=== PATIENT | female | born 1940 | race Caucasian/White ===

== ENCOUNTER → 2017-07-22 | Outpatient (CLI) | payer MEDICARE, BC ==
[~2017-07-22] MED LIST: ACET500T68 PO; ALBU8.5H IH; AMIL5TAB12 PO; ASP81 PO; ASPI-1471 PO; ASPI81TA94 PO; ATEN-65 PO; ATEN-76 PO; BIOF1TAB PO; CALC300T30 PEG; CALC400T65 PO; CELE-1 PO; CEPH250C37 PO; CHOL100052 PO; CHOL200074 PO; CRAN200C5 PO; CRAN425C8 PO; CYCL10TA29 PO; ENOX40DI9 SC; FLUT10SP; FLUT16SP19 NS; HYDR-3078 PO; LATA2.5D7 OU; LEVO150T72 PO; LEVO50TA86 PO; LOPE-111 PO; LOR5/325 PO; LOSA25TA46 PO; LOSA50TA72 PO; LUTE20TA PO; MELA10TA2 PO; MELA1TAB9 PO; MELO-205 PO; MOD FT; MOD PO; MONT10TA4 PO; MULT-865 PO; OMEG-96 PO; OMEP-125 PO; OMEP-153 PO; ONDA8TAB98 PO; OXYC5TAB38 PO; PAIN RELIEF TOP; PER PO; PROM25SU9 RC; RANI150C17 PO; [UNRECOGNIZED DRUG - OTHER] ENA
[2017-07-22 14:52] LABS: PLATELET COUNT, AUTOMATED 193 K/uL (150-450)
--- NOTE | 2017-07-22 15:34 | RADIOLOGY IMAGING REPORT ---
FACILITY: [facility] - [place] PATIENT NAME: Telma Joseph : 1940 MR: [id number] V: [id number] EXAM DATE: ORDERING PHYSICIAN: JOANNA PULIDO TECHNOLOGIST: Location: [facility] Patient: Telma Joseph : 1940 Visit/Account:[id number] Date of Sevice: 07/22/2017 Exam type: KUB SINGLE VIEW ABDOMEN History: Constipation, abdominal pain Comparison: CT February 25, 2014. Findings: Bowel gas pattern is nonspecific. Surgical clips identified in the right upper quad abdomen. There are postsurgical changes from posterior lumbar interbody fusion of the lower lumbosacral spine. No g ross evidence of organomegaly. There are moderate degenerative changes of both hip joints at the pub ic symphysis. IMPRESSION: 1. Nonspecific bowel gas pattern Report Dictated By: Paula De León MD at 07/22/2017 3:29 PM Report E-Signed By: Paula De León MD at 07/22/2017 3:31 PM WSN:[email or web address]
== END ==
LOC: LAB 14:12
PROVIDERS: ATTEND Nurse Practitioner Primary Care
DX: M96.89 Other intraoperative and postprocedural complications and disorders of the musculoskeletal system (principal); R10.9 Unspecified abdominal pain
CPT/HCPCS: 36415; 74018; 82040; 82247; 82310; 82374; 82435; 82565; 82947; 84075; 84132; 84155; 84295; 84450; 84460; 84520; 85025

== ENCOUNTER 2017-08-08 01:28 | Day surgery (SDC) | payer MEDICARE, BC ==
[2017-08-08] VITALS (7 sets, daily range): BP systolic 125–145; BP diastolic 87–109
[~2017-08-08] VITALS: Ht 175.3 cm; Wt 66.2 kg
[~2017-08-08 01:28] MED LIST changes: +GUAI120L3 PO
[2017-08-08] MEDS ORDERED: MIDAZOLAM 2 MG/2 ML VIAL IVP PRN (07:55)
[2017-08-08] MEDS ORDERED: NORMOSOL R SOLN(*) 1000 ML BAG 1,000 ML IV PRN (07:55)
[2017-08-08] MEDS ORDERED: LIDOCAINE/SOD BICARB 8.4% SYR ID ONE (07:55)
--- NOTE | 2017-08-08 08:06 | Post Operative Progress Note ---
Post Operative Progress Note Date: Aug 08, 2017 Time: 09:01 Surgeon: kendal Anesthesia: dr weaver Pre-Op Diagnosis: change in bowel habits Post-Op Diagnosis: diverticulosis sigmoid Procedure(s): colonoscopy WILIAM VILLAR MD Aug 08, 2017 08:06
--- NOTE | 2017-08-08 08:06 | Short(Outpt) Discharge Summary ---
Discharge Summary Reason for Hosp/Final Diag: (1) Change in bowel habits Hospital Course & Plan: sigmoid diverticulosis Departure Discharge to: Home Discharge Instructions Home Meds Active Scripts Guaifenesin/Codeine Phosphate (Codeine-Guaifen 10-100 mg/5 ml) 120 Ml Liquid, 1- 2 TSP PO Q6H Y for COUGH, #120 ML 0 Refills Prov:JOANNA PULIDO DNP, FEATHER DUSTER WINDER-BC 08/06/17 Levothyroxine Sodium (LEVOTHYROXINE SODIUM) 50 Mcg Tablet, 1 TAB PO QDAY, #90 TAB 1 Refill Prov:DENISA SU MD 08/05/17 Losartan Potassium (LOSARTAN POTASSIUM) 50 Mg Tablet, 1 TAB PO QDAY, #90 TAB 4 Refills Prov:DENISA SU MD 07/31/17 Ranitidine Hcl (RANITIDINE HCL) 150 Mg Capsule, 1 CAP PO BID for 90 Days, #180 CAPSULE 3 Refills Prov:DENISA SU MD 06/28/17 Amiloride/Hctz (AMILORIDE HCL-HCTZ 5-50 MG TAB) 1 Each Tab, 1 EACH PO 3XW, #36 TAB 3 Refills Prov:RIKA CHOPRA MD 07/27/14 Reported Medications Atenolol (ATENOLOL) 25 Mg Tablet, 1 TAB PO BID, TAB 06/28/17 Albuterol Sulfate 90 Mcg/Act (PROAIR HFA 90 MCG/ACT) 8.5 Gm Hfa.aer.ad, 2 PUFF IH Q4-6H Y for SHORTNESS OF BREATH, INHALER 06/28/17 Melatonin/Pyridoxine HCl (B6) (Melatonin 3 mg Tablet) 1 Each Tablet, 6 MG PO HS 06/28/17 Calcium Carbonate (TUMS ULTRA) 400 Mg Tab.chew, 2-3 TAB.CHEW PO DAILY, TAB.CHEW 06/28/17 Aspirin (ASPIR 81) 81 Mg Tablet.dr, 1 TAB PO QDAY, TAB 06/28/17 Fluticasone Prop 50 Mcg Ns (FLONASE 50 MCG NS) 16 Gm [place].susp, 1 SPRAY NS BID Y for PRN, BOT 06/28/17 [place]-3 Fatty Acids/Fish Oil (OMEGA 3 1,000 MG SOFTGEL) 1 Each Capsule, 1 EACH PO BID 08/07/15 Montelukast Sodium (MONTELUKAST SODIUM) 10 Mg Tablet, 1 TAB PO QDAY, TAB 08/07/15 Lutein (LUTEIN) 20 Mg Tablet, 1 TAB PO DAILY 08/07/15 Cholecalciferol (Vitamin D3) (VITAMIN D-3) 2,000 Unit Capsule, 1 CAP PO DAILY, CAPSULE 08/07/15 Acetaminophen (TYLENOL EXTRA STRENGTH) 500 Mg Tablet, 2 TAB PO PRN 08/07/15 Latanoprost (LATANOPROST) 2.5 Ml Drops, 1 DROP OU QHS 03/25/14 Meloxicam (MELOXICAM) 7.5 Mg Tablet, 1 TAB PO DAILY 03/25/14 Discontinued Reported Medications Cranberry Extract (CRANBERRY) 425 Mg Capsule, 450 MG PO DAILY, CAPSULE 06/28/17 Bioflav,Lemon/Vit Bcomp&C (LIPO-FLAVONOID PLUS CAPLET) 1 Each Tablet, 1 EACH PO 06/28/17 Multivitamin (DAILY MULTIPLE VITAMIN) 1 Each Tablet, 1 EACH PO DAILY 08/07/15 Diet: High Fiber Activity: As Tolerated WILIAM VILLAR MD Aug 08, 2017 08:06
[2017-08-08] MEDS ORDERED: PROPOFOL EMUL(*) 10MG/ML 20 ML 40 ML ONE (08:18)
[2017-08-08] MEDS ORDERED: LIDOCAINE MPF 1% 5 ML VIAL ONE (08:18)
[2017-08-08] MEDS ORDERED: ALBUTEROL/IPRATROPIUM 3 ML NEB ONE (09:26)
--- NOTE | 2017-08-08 15:46 | OPERATIVE REPORT 1 ---
EVENT DATE: August 08, 2017 SURGEON: Rodrigo Powell MD ANESTHESIOLOGIST: Scar Dowell MD ANESTHESIA: Sedation. PREOPERATIVE DIAGNOSIS Change in bowel habits, change in the shape of the stool. POSTOPERATIVE DIAGNOSIS Sigmoid diverticulosis. PROCEDURE PERFORMED Colonoscopy. DESCRIPTION OF PROCEDURE The patient was placed in the left lateral decubitus position and given intravenous sedation. The rectal exam showed some external hemorrhoidal skin tags. On digital exam, I could not palpate any masses, no strictures, no narrowings, and no tumors. The colonoscope was inserted and advanced to the cecum. She had quite a tortuous sigmoid colon with lots of diverticula, but we were able to advance beyond this and get the scope into the cecum. She had an excellent bowel prep. The ileocecal valve and base of the cecum were identified. Care was taken to look behind the haustral folds, and the scope was slowly withdrawn. No abnormalities were noted in the cecum, right colon, transverse, or descending colon. She had multiple diverticula and a tortuous sigmoid colon, but it seemed to distend nicely and allow my scope to pass. Rectum was normal. The scope was retroflexed, and that appeared to be normal. Most likely, this patient will not require another colonoscopy. [facility]
== END 2017-08-08 10:15 | disposition home or self-care (01) ==
LOC: OR 01:28
PROVIDERS: ATTEND Surgery
DX: R19.4 Change in bowel habit (principal); R19.5 Other fecal abnormalities; K57.30 Diverticulosis of large intestine without perforation or abscess without bleeding
CPT/HCPCS: 00811; 45378; 94640; J2001; J2704; J7620

== ENCOUNTER 2017-08-10 09:59 | Emergency (ER) | payer MEDICARE, BC ==
--- NOTE | 2017-08-10 10:33 | ER Report ---
History and Physical Time Seen By MD: 10:32 Hx. of Stated Complaint: patient states that she has been sick with a bad cough for 2 weeks; patient states that she thinks that she has the flu; patient also had an colonoscopy 08/08/17 at [facility] HPI/ROS CHIEF COMPLAINT: Persistent cough and flulike symptoms HISTORY OF PRESENT ILLNESS: Patient is a 76 her old female who presents emergency Department with worsening cough over the past 2 weeks. Reports fevers chills body aches and mild headache. The symptoms have been present for 2 weeks patient was seen at urgent care and was prescribed Zithromax course which she completed. The patient felt no better after completion of the antibiotic. Because of persistent cough she presents to the emergency department for evaluation. REVIEW OF SYSTEMS: Constitutional: Subjective fevers generalized malaise, body aches Eyes: No discharge. ENT: Mild sore throat, postnasal drip Cardiovascular: Subcostal chest discomfort with cough, no palpitations Respiratory: Wet sounding but nonproductive cough, Gastrointestinal: No abdominal pain, no vomiting. Genitourinary: No hematuria. Musculoskeletal: No back pain. Skin: No rashes. Neurological: No headache. Allergies: Coded Allergies: lisinopril (Verified Allergy, Severe, LIPS SWELL, 08/10/17) nitrofurantoin (Verified Allergy, Severe, Shortness of Breath, 08/10/17) ROE Inhibitors (Verified Allergy, Intermediate, SWELLING, 08/10/17) Pt does not think she is allergic to these medications pentazocine (Verified Allergy, Intermediate, N/V, 08/10/17) oxycodone (Verified Adverse Reaction, Severe, NAUSEA AND VOMITING, 08/10/17 ) Home Meds Active Scripts Albuterol Sulfate 0.083% (ALBUTEROL SULFATE 0.083%) 2.5 Mg/3 Ml Vial.neb, 2.5 MG INH Q4-6H for cough, #1 BOX 0 Refills Prov:ARMAAN GUNTER MD 08/10/17 Prednisone (PREDNISONE) 20 Mg Tablet, 20 MG PO BID for 5 Days, #10 TAB 0 Refills Prov:ARMAAN GUNTER MD 08/10/17 Codeine Phosphate/Guaifenesin (Virtussin AC Liquid) 10 Mg-100 Mg/5 Ml Liquid, 5- 10 ML PO Q6-8H for cough, #240 ML 0 Refills Prov:ARMAAN GUNTER MD 08/10/17 Guaifenesin/Codeine Phosphate (Codeine-Guaifen 10-100 mg/5 ml) 120 Ml Liquid, 1- 2 TSP PO Q6H Y for COUGH, #120 ML 0 Refills Prov:JOANNA PULIDO DNP, [employer] I INSPECTOR-BC 08/06/17 Levothyroxine Sodium (LEVOTHYROXINE SODIUM) 50 Mcg Tablet, 1 TAB PO QDAY, #90 TAB 1 Refill Prov:DENISA SU MD 08/05/17 Losartan Potassium (LOSARTAN POTASSIUM) 50 Mg Tablet, 1 TAB PO QDAY, #90 TAB 4 Refills Prov:DENISA SU MD 07/31/17 Ranitidine Hcl (RANITIDINE HCL) 150 Mg Capsule, 1 CAP PO BID for 90 Days, #180 CAPSULE 3 Refills Prov:DENISA SU MD 06/28/17 Amiloride/Hctz (AMILORIDE HCL-HCTZ 5-50 MG TAB) 1 Each Tab, 1 EACH PO 3XW, #36 TAB 3 Refills Prov:RIKA CHOPRA MD 07/27/14 Reported Medications Atenolol (ATENOLOL) 25 Mg Tablet, 1 TAB PO BID, TAB 06/28/17 Albuterol Sulfate 90 Mcg/Act (PROAIR HFA 90 MCG/ACT) 8.5 Gm Hfa.aer.ad, 2 PUFF IH Q4-6H Y for SHORTNESS OF BREATH, INHALER 06/28/17 Melatonin/Pyridoxine HCl (B6) (Melatonin 3 mg Tablet) 1 Each Tablet, 6 MG PO HS 06/28/17 Calcium Carbonate (TUMS ULTRA) 400 Mg Tab.chew, 2-3 TAB.CHEW PO DAILY, TAB.CHEW 06/28/17 Aspirin (ASPIR 81) 81 Mg Tablet.dr, 1 TAB PO QDAY, TAB 06/28/17 Fluticasone Prop 50 Mcg Ns (FLONASE 50 MCG NS) 16 Gm [place].susp, 1 SPRAY NS BID Y for PRN, BOT 06/28/17 [place]-3 Fatty Acids/Fish Oil (OMEGA 3 1,000 MG SOFTGEL) 1 Each Capsule, 1 EACH PO BID 08/07/15 Montelukast Sodium (MONTELUKAST SODIUM) 10 Mg Tablet, 1 TAB PO QDAY, TAB 08/07/15 Lutein (LUTEIN) 20 Mg Tablet, 1 TAB PO DAILY 08/07/15 Cholecalciferol (Vitamin D3) (VITAMIN D-3) 2,000 Unit Capsule, 1 CAP PO DAILY, CAPSULE 08/07/15 Acetaminophen (TYLENOL EXTRA STRENGTH) 500 Mg Tablet, 2 TAB PO PRN 08/07/15 Latanoprost (LATANOPROST) 2.5 Ml Drops, 1 DROP OU QHS 03/25/14 Meloxicam (MELOXICAM) 7.5 Mg Tablet, 1 TAB PO DAILY 03/25/14 Discontinued Reported Medications Cranberry Extract (CRANBERRY) 425 Mg Capsule, 450 MG PO DAILY, CAPSULE 06/28/17 Bioflav,Lemon/Vit Bcomp&C (LIPO-FLAVONOID PLUS CAPLET) 1 Each Tablet, 1 EACH PO 06/28/17 Multivitamin (DAILY MULTIPLE VITAMIN) 1 Each Tablet, 1 EACH PO DAILY 08/07/15 Past Medical/Surgical History Past medical history for allergic rhinitis, history of moderate mitral regurgitation and tricuspid regurgitation, history of hypertension, history of asthma, history of pulmonary embolism after neck surgery in 2005, history of sleep apnea, history of gastroesophageal reflux disease history of pancreatitis. History of osteoarthritis, history of hypothyroidism, spinal surgery with lumbar laminectomy in 2001 and cervical laminectomy in 2005. History of cholecystectomy in 1982 and history of hernia repair. Hx Smoking: No Smoking Status: Never Smoker Exposure to Second Hand Smoke?: No Hx Substance Use Disorder: No Hx Alcohol Use: Yes (OCC) Constitutional Vital Sign - Last 24 Hours 08/10/17 08/10/17 08/10/17 08/10/17 09:59 10:19 10:20 10:29 Temp 97.4 Pulse ??? 81 ??? Resp 19 B/P (MAP) 163/116 163/116 (132) Pulse Ox 90 O2 Delivery Room Air 08/10/17 08/10/17 08/10/17 08/10/17 10:30 10:35 10:50 10:50 Pulse 79 Resp 18 B/P (MAP) 149/101 (117) Pulse Ox 94 O2 Delivery Nasal Cannula O2 Flow Rate 1.0 1.0 08/10/17 08/10/17 08/10/17 08/10/17 10:59 10:59 11:30 11:59 Pulse 77 84 79 Resp 18 B/P (MAP) 168/102 (124) Pulse Ox 98 92 08/10/17 08/10/17 08/10/17 08/10/17 11:59 12:00 12:05 12:20 Pulse 80 80 77 Resp 16 B/P (MAP) 165/111 (129) Pulse Ox 91 93 08/10/17 08/10/17 08/10/17 08/10/17 12:20 12:28 12:28 12:30 Pulse 76 Resp 16 B/P (MAP) 152/96 (114) Pulse Ox 96 95 O2 Delivery Nasal Cannula Room Air O2 Flow Rate 1.0 08/10/17 08/10/17 08/10/17 08/10/17 12:35 12:43 12:43 12:49 Pulse 79 76 77 Resp 18 18 Pulse Ox 91 95 O2 Delivery Nasal Cannula O2 Flow Rate 1.0 08/10/17 08/10/17 13:00 13:05 Pulse 82 B/P (MAP) 155/97 (116) Pulse Ox 88 Physical Exam General/Constitutional: Patient is awake, alert, nontoxic wet sounding cough, increased work of breathing Head: Normocephalic and atraumatic. Eyes: Conjunctival clear, Pupils are equal and reactive to light. Extraocular muscles are intact and symmetrical. Sclera are clear and anicteric. Ears:External canals are clear. Tympanic membranes are clear with normal landmarks and light reflex. Nares: No rhinorrhea or bleeding. Turbinates are pink and moist. Oropharyngeal: Mucous membranes are moist. There is no pharyngeal erythema or exudate. There are no palatal petechiae. Uvula symmetrical Neck: Supple, no adenopathy. Cardiovascular: Heart is regular rate and rhythm without audible murmurs, rubs or gallops. Pulmonary: Lungs are noted for wet rhonchi and wheeze with prolonged expiratory phase. Abdomen: Soft, nontender, no guarding or peritoneal signs. Extremities: No gross deformities, No peripheral cyanosis. Able to move all 4 extremities. Neuro: Alert and oriented X3, Skin: No rashes, skin is warm dry and well perfused. Medical Decision Making Data Points Result Diagram: 08/10/17 1029 08/10/17 1029 Laboratory Hematology Test 08/10/17 10:15 08/10/17 10:29 Influenza Virus Type A (PCR) Negative (NEGATIVE) Influenza Virus Type B (PCR) Negative (NEGATIVE) Respiratory Syncytial Virus (PCR) Positive (NEGATIVE) Red Blood Count 4.97 M/uL (4.17-5.56) Mean Corpuscular Volume 89.3 fL (80.0-96.0) Mean Corpuscular Hemoglobin 30.5 pg (26.0-33.0) Mean Corpuscular Hemoglobin Concent 34.1 g/dL (32.0-36.0) Red Cell Distribution Width 14.3 % (11.5-14.5) Mean Platelet Volume 7.3 fL (7.2-11.1) Neutrophils (%) (Auto) 75.3 % (39.4-72.5) Lymphocytes (%) (Auto) 13.6 % (17.6-49.6) Monocytes (%) (Auto) 10.6 % (4.1-12.4) Eosinophils (%) (Auto) 0.0 % (0.4-6.7) Basophils (%) (Auto) 0.5 % (0.3-1.4) Nucleated RBC Relative Count (auto) 0.0 /100WBC Neutrophils # (Auto) 3.5 K/uL (2.0-7.4) Lymphocytes # (Auto) 0.6 K/uL (1.3-3.6) Monocytes # (Auto) 0.5 K/uL (0.3-1.0) Eosinophils # (Auto) 0.0 K/uL (0.0-0.5) Basophils # (Auto) 0.0 K/uL (0.0-0.1) Nucleated RBC Absolute Count (auto) 0.00 K/uL Sodium Level 129 mmol/L (137-145) Potassium Level 3.9 mmol/L (3.5-5.0) Chloride Level 91 mmol/L (98-107) Carbon Dioxide Level 24 mmol/L (22-31) Blood Urea Nitrogen 14 mg/dl (7-18) Creatinine 0.90 mg/dl (0.52-1.04) Glomerular Filtration Rate Calc > 60.0 Random Glucose 92 mg/dl (75-110) Calcium Level 9.1 mg/dl (8.4-10.2) Total Bilirubin 0.8 mg/dl (0.2-1.3) Aspartate Amino Transf (AST/SGOT) 36 U/L (0-35) Alanine Aminotransferase (ALT/SGPT) 42 U/L (0-56) Alkaline Phosphatase 75 U/L (0-126) Total Protein 7.3 gm/dl (6.3-8.2) Albumin 4.3 g/dl (3.5-5.0) Chemistry Test 08/10/17 10:15 08/10/17 10:29 Influenza Virus Type A (PCR) Negative (NEGATIVE) Influenza Virus Type B (PCR) Negative (NEGATIVE) Respiratory Syncytial Virus (PCR) Positive (NEGATIVE) White Blood Count 4.7 k/uL (4.5-11.0) Red Blood Count 4.97 M/uL (4.17-5.56) Hemoglobin 15.1 g/dL (12.0-16.0) Hematocrit 44.4 % (34.0-47.0) Mean Corpuscular Volume 89.3 fL (80.0-96.0) Mean Corpuscular Hemoglobin 30.5 pg (26.0-33.0) Mean Corpuscular Hemoglobin Concent 34.1 g/dL (32.0-36.0) Red Cell Distribution Width 14.3 % (11.5-14.5) Platelet Count 132 K/uL (150-450) Mean Platelet Volume 7.3 fL (7.2-11.1) Neutrophils (%) (Auto) 75.3 % (39.4-72.5) Lymphocytes (%) (Auto) 13.6 % (17.6-49.6) Monocytes (%) (Auto) 10.6 % (4.1-12.4) Eosinophils (%) (Auto) 0.0 % (0.4-6.7) Basophils (%) (Auto) 0.5 % (0.3-1.4) Nucleated RBC Relative Count (auto) 0.0 /100WBC Neutrophils # (Auto) 3.5 K/uL (2.0-7.4) Lymphocytes # (Auto) 0.6 K/uL (1.3-3.6) Monocytes # (Auto) 0.5 K/uL (0.3-1.0) Eosinophils # (Auto) 0.0 K/uL (0.0-0.5) Basophils # (Auto) 0.0 K/uL (0.0-0.1) Nucleated RBC Absolute Count (auto) 0.00 K/uL Glomerular Filtration Rate Calc > 60.0 Calcium Level 9.1 mg/dl (8.4-10.2) Total Bilirubin 0.8 mg/dl (0.2-1.3) Aspartate Amino Transf (AST/SGOT) 36 U/L (0-35) Alanine Aminotransferase (ALT/SGPT) 42 U/L (0-56) Alkaline Phosphatase 75 U/L (0-126) Total Protein 7.3 gm/dl (6.3-8.2) Albumin 4.3 g/dl (3.5-5.0) EKG/Imaging EKG Interpretation EKG shows normal sinus rhythm with voltage criteria for left ventricular hypertrophy. Monitor Interpretation: Normal Sinus Rhythm ED Course/Re-evaluation ED Course 08/10/2017 10:53:33 am patient with symptoms of acute bronchitis. Plan will be infectious-type workup. Doubt cardiac cause for her symptoms, we'll also check for influenza and RSV. Plan will be DuoNeb and IV steroids at this time. Re-evaluation 08/10/2017 12:40:11 pm patient feeling somewhat improved after 2 DuoNeb treatments. We'll order one more. Chest x-ray is clear testing reveals positive RSV. Plan will be to discharge patient with a home nebulizer along with medications do a short course of oral steroids. He'll the patient's cough medicine Decision to Disposition Date: Aug 10, 2017 Decision to Disposition Time: 13:12 Depart Departure Latest Vital Signs Vital Signs Date Time Temp Pulse Resp B/P (MAP) Pulse Ox O2 Delivery O2 Flow Rate FiO2 08/10/17 13:05 82 88 08/10/17 13:00 155/97 (116) 08/10/17 12:49 18 08/10/17 12:43 Nasal Cannula 1.0 08/10/17 10:19 97.4 Impression: Primary Impression: RSV bronchitis Condition: Improved Disposition: HOME OR SELF-CARE Referrals: DENISA SU MD (PCP) 2 Days For recheck New Scripts Albuterol Sulfate 0.083% (ALBUTEROL SULFATE 0.083%) 2.5 Mg/3 Ml Vial.neb 2.5 MG INH Q4-6H for cough, #1 BOX 0 Refills Prov: ARMAAN GUNTER MD 08/10/17 Prednisone (PREDNISONE) 20 Mg Tablet 20 MG PO BID for 5 Days, #10 TAB 0 Refills Prov: ARMAAN GUNTER MD 08/10/17 Codeine Phosphate/Guaifenesin (Virtussin AC Liquid) 10 Mg-100 Mg/5 Ml Liquid 5-10 ML PO Q6-8H for cough, #240 ML 0 Refills Prov: ARMAAN GUNTER MD 08/10/17 Departure Forms: ER Transition Record, Home Oxygen, Nebulizer RX, Home Oxygen Company Chosen by Patient: Durable Medical Equipment-Oxygen: Nebulizer Reason for Use/Diagnosis: rsv bronchiolitis Start Date of the Order: Aug 10, 2017 Route of Administration (if applicable): Other Duration Home O2 Required: 14 Duration Units: Days Room Air Oxygen Saturation: 88 ER Prescribing Physician's Name: Armaan Gunter NPI Numbers for Local ER MDs: Lyric [id number] Medications Reconciliation, Patient Portal Information Patient Instructions: Acute Cough (ED), Respiratory Syncytial Virus (ED) ARMAAN GUNTER MD Aug 10, 2017 10:33
[2017-08-10] MEDS ORDERED: ALBUTEROL/IPRATROPIUM 3 ML NEB NEB ONE ×2 (10:50→12:10)
[2017-08-10] MEDS ORDERED: methylPREDNIS SUCC 125 MG/2ML IVP ONE (10:50)
[2017-08-10 10:55] LABS: PLATELET COUNT, AUTOMATED 132 K/uL (150-450)
--- NOTE | 2017-08-10 11:01 | EKG ---
FACILITY: [facility] [place] PATIENT NAME: LETICIA MCLAUGHLIN : [id number] MR: [id number] V: [id number] EXAM DATE: ORDERING PHYSICIAN: ARMAAN RILEY TECHNOLOGIST: LEXY Mckeon Reason : SOB Blood Pressure : / mmHG Vent. Rate : 075 BPM Atrial Rate : 075 BPM P-R Int : 142 ms QRS Dur : 086 ms QT Int : 412 ms P-R-T Axes : -22 038 080 degrees QTc Int : 460 ms Probable ectopic atrial rhythm Poor R wave progression, anterior leads. When compared with ECG of 16-NOV-2015 18:02, Previous ECG has undetermined rhythm, needs review Questionable change in initial forces of Septal leads Confirmed by GLENNA VAZQUEZ ([id number]) on 08/10/2017 3:26:51 PM Referred By: ROSEMARY Confirmed By:GLENNA VAZQUEZ
[2017-08-10] MEDS ORDERED: ONDANSETRON 4 MG/2 ML VIAL IVP ONE (11:50)
--- NOTE | 2017-08-10 12:33 | RADIOLOGY IMAGING REPORT ---
FACILITY: [facility] PATIENT NAME: Telma Joseph : 1940 MR: [id number] V: [id number] EXAM DATE: ORDERING PHYSICIAN: ARMAAN RILEY TECHNOLOGIST: Location: [facility] - [place] Patient: Telma Joseph : 1940 Visit/Account:[id number] Date of Sevice: 08/10/2017 Examination: CHEST PA AND LAT Comparison: None. History: Respiratory distress. Findings: Pulmonary hyperexpansion. No consolidation, nodule, or peribronchial inflammation. No pneum othorax, edema, or effusion. Cardiac and hilar contour size is within normal limits. Incompletely vis ualized cervical and lumbar spine fusions. No acute osseous abnormality. IMPRESSION: Pulmonary hyperexpansion. Otherwise, no evidence of acute cardiopulmonary disease. Report Dictated By: Petr Farrell MD at 08/10/2017 12:27 PM Report E-Signed By: Petr Farrell MD at 08/10/2017 12:30 PM WSN:[id number]
[2017-08-10] MEDS ORDERED: ALBUTEROL 2.5 MG/3 ML NEB NEB ONE (12:40)
[2017-08-10] MEDS ORDERED: PRED20TA6 PO (12:43)
[2017-08-10] MEDS ORDERED: [UNRECOGNIZED DRUG - CODE] PO (12:43)
[2017-08-10] MEDS ORDERED: ALBU2.5V36 INH (12:43)
[2017-08-10 13:00] VITALS: BP 155/97
== END 2017-08-10 13:21 | disposition home or self-care (01) ==
LOC: ER 10:26
DX: J20.5 Acute bronchitis due to respiratory syncytial virus (principal)
CPT/HCPCS: 36415; 71046; 85025; 87040; 87502; 87798; 93005; 94640; 96374; 96375; 99284; J2405; J2930; J7613; J7620; 82040; 82247; 82310; 82374; 82435; 82565; 82947; 84075; 84132; 84155; 84295; 84450; 84460; 84520

== ENCOUNTER → 2017-08-24 | Outpatient (CLI) | payer MEDICARE, BC ==
[~2017-08-24] MED LIST changes: +ALBU2.5V36 INH; +AMOX-559 PO; +PRED20TA6 PO; +[UNRECOGNIZED DRUG - CODE] PO
== END ==
LOC: LAB 07:23
PROVIDERS: ATTEND Nurse Practitioner Primary Care
DX: R19.7 Diarrhea, unspecified (principal)
CPT/HCPCS: 82274; 83630; 87045; 87324; 87449

== ENCOUNTER → 2017-08-28 | Outpatient (CLI) | payer MEDICARE, BC | LOC: LAB 13:48 | PROVIDERS: ATTEND Family Medicine | DX: E87.1 Hypo-osmolality and hyponatremia (principal) | CPT/HCPCS: 36415; 82310; 82374; 82435; 82565; 82947; 84132; 84295; 84520 ==

== ENCOUNTER → 2017-12-10 | Outpatient (CLI) | payer MEDICARE, BC ==
[~2017-12-10] MED LIST changes: +CYAN100015 PO; +RANI-318 PO; +VIT1CAPS9 PO
--- NOTE | 2017-12-10 15:47 | RADIOLOGY IMAGING REPORT ---
FACILITY: [facility] - [place] PATIENT NAME: Telma Joseph : 1940 MR: [id number] V: [id number] EXAM DATE: ORDERING PHYSICIAN: DENISA SU TECHNOLOGIST: Location: [facility] - [place] Patient: Telma Joseph : 1940 Visit/Account:[id number] Date of Sevice: 12/10/2017 DEXA Scan Clinical history: Postmenopausal. Comparison: DEXA scan from 04/15/2012. HIP: Bone mineral density (BMD) measured in the Left total hip region correlates with a Z-score 0.4 and a T-score of -1.3 which is osteopenia as defined by the World Health Organization. The corresponding r isk of fracture in the hip is 2-3 times increased compared with a young adult reference population. T his total hip value has decrease by 3.1 % since the prior study. More than 5% change is considered s ignificant. T score left femoral neck -1.7 Bone mineral density (BMD) measured in the Femoral Neck region measures 0.799 g/cm2. FOREARM: The bone mineral density (BMD) measured in the ULTRADISTAL right forearm, where trabecular bone predo minates, correlates with a Z-score 1.7 and a T-score of -0.7 which is normal as defined by the World Health Organization. The corresponding risk of fracture in the distal forearm is 1-2 times increased compared with a young adult reference population. This value has decrease by 11.4 % since the prior study. More than 5% change is considered significant. The bone mineral density (BMD) in the MIDSHAFT of the forearm, where cortical bone predominates, chato elates with a Z-score 0.1 and a T-score of -2.3 which is osteopenia as defined by the World Health Or ganization. The corresponding risk of fracture in the midshaft of the forearm is 4-6 times increased compared with a young adult reference population. This value has decrease by 11.4 % since the prior s tudy. More than 5% change is considered significant. IMPRESSION: 1. Left Hip: Osteopenia. There has been 3.1% decrease in the total hip bone mineral density since t he previous exam. 2. Femoral Neck: Bone Mineral Density is 0.799 g/cm2 3. Right Forearm: Osteopenia. There has been 11.4% decrease in the bone mineral density since the previous exam The next DEXA scan of this patient should include the following sites: L1-L4 and the right forearm. FRAX? WHO Fracture Risk Assessment Tool link: <http://www.shef.ac.uk/FRAX/tool.jsp?locationValue=9> PLEASE NOTE: 1) The World Health Organization defines low BMD as follows: T-score Normal > -1 Osteopenia < -1 and > -2.5 Osteoporosis < -2.5 without fractures Established osteoporosis < -2.5 with fractures 2) In general, you may wish to consider: Diagnosis Treatment Follow-up DEXA Normal BMD Prevention 2-3 years Osteopenia Prevention/therapy 1-2 years Osteoporosis Therapy Yearly 3) Fracture risk estimated from the T-score is more accurate for vertebral fractures (often spontane ous) than for hip fractures. Report Dictated By: Paula De León MD at 12/10/2017 3:39 PM Report E-Signed By: Paula De León MD at 12/10/2017 3:42 PM WSN:[email or web address]
== END ==
LOC: RAD 01:30
PROVIDERS: ATTEND Family Medicine
DX: M85.88 Other specified disorders of bone density and structure, other site (principal)
CPT/HCPCS: 77080

== ENCOUNTER 2018-03-19 21:26 | Emergency (ER) | payer MEDICARE, BC ==
[~2018-03-19 21:26] MED LIST changes: -LOSA50TA72 PO; +LOSA50TA74 PO
[2018-03-19] MEDS ORDERED: CARV12.578 PO (21:43)
--- NOTE | 2018-03-19 21:45 | ER Report ---
History and Physical Time Seen By MD: 21:44 Hx. of Stated Complaint: tachycardic, new onset afib with rvr at clinic. pain in jaw earlier with sob HPI/ROS CHIEF COMPLAINT: New-onset atrial fibrillation HISTORY OF PRESENT ILLNESS: This is a 77-year-old female. [facility]. Had an episode while walking in the park today where she felt very weak and had bilateral neck pain. Had some shortness of breath with this as well. Heart was racing. Went to urgent care and was found to have atrial fibrillation with a rapid ventricular rate. She has a history of mitral valve prolapse and sees Dr. Morton at [facility]/cardiology. Has never had atrial fibrillation in the past. She did take a baby aspirin this morning. They have been talking about doing a mitral valve repair. No history of CT in the past. No fevers or chills or cough. No labs done at urgent care; sent here for further evaluation. REVIEW OF SYSTEMS: Constitutional: No fever or chills. Eyes: No vision changes. ENT: No sore throat. No congestion. Cardiovascular: No chest pain. Respiratory: No cough. Gastrointestinal: No abdominal pain. No nausea or vomiting. Genitourinary: No dysuria. No hematuria. Musculoskeletal: No musculoskeletal pain. Neurological: No headache. No numbness. Allergies: Coded Allergies: lisinopril (Verified Allergy, Severe, LIPS SWELL, 08/10/17) nitrofurantoin (Verified Allergy, Severe, Shortness of Breath, 08/10/17) ROE Inhibitors (Verified Allergy, Intermediate, SWELLING, 08/10/17) Pt does not think she is allergic to these medications pentazocine (Verified Allergy, Intermediate, N/V, 08/10/17) oxycodone (Verified Adverse Reaction, Severe, NAUSEA AND VOMITING, 08/10/17) Home Meds Active Scripts Apixaban (ELIQUIS) 5 Mg Tablet, 5 MG PO BID, #60 TAB 0 Refills Prov:KENNA BROOKS MD 03/19/18 Levothyroxine Sodium (LEVOTHYROXINE SODIUM) 50 Mcg Tablet, 1 TAB PO QDAY, #90 TAB Prov:DENISA SU MD 01/27/18 Amiloride/Hctz (AMILORIDE HCL-HCTZ 5-50 MG TAB) 1 Each Tab, 1 EACH PO QODAY for 90 Days, #45 TAB 3 Refills Prov:DENISA SU MD 12/09/17 Omeprazole (OMEPRAZOLE) 20 Mg Capsule.dr, 1 CAP PO BID for 90 Days, #180 CAP 1 Refill Prov:DENISA SU MD 12/09/17 Fluticasone Prop 50 Mcg Ns (FLONASE 50 MCG NS) 16 Gm Kirby.susp, 1 SPRAY NS DAILY PRN for PRN for 90 Days, #3 BOT 4 Refills Prov:DENISA SU MD 11/04/17 Meloxicam (MELOXICAM) 7.5 Mg Tablet, 1 TAB PO DAILY for 90 Days, #90 TAB 1 Refill Prov:DENISA SU MD 10/18/17 Losartan Potassium (LOSARTAN POTASSIUM) 50 Mg Tablet, 2 TAB PO QDAY for 90 Days, #180 TAB 4 Refills Prov:DENISA SU MD 09/10/17 Albuterol Sulfate 0.083% (ALBUTEROL SULFATE 0.083%) 2.5 Mg/3 Ml Vial.neb, 2.5 MG INH Q4-6H for cough, #1 BOX 0 Refills Prov:ARMAAN RILEY MD 08/10/17 Codeine Phosphate/Guaifenesin (Virtussin AC Liquid) 10 Mg-100 Mg/5 Ml Liquid, 5- 10 ML PO Q6-8H for cough, #240 ML 0 Refills Prov:ARMAAN RILEY MD 08/10/17 Reported Medications Carvedilol (CARVEDILOL) 12.5 Mg Tablet, 12.5 MG PO BID, #10 TAB 03/19/18 Cyanocobalamin (Vitamin B-12) (VITAMIN B-12) 1,000 Mcg Tablet.er, 1 TAB PO DAILY 12/09/17 Vit C/E/Zn/Coppr/Lutein/Zeaxan (Preservision Areds 2 Softgel) 1 Each Capsule, 1 CAP PO BID 12/09/17 Melatonin/Pyridoxine HCl (B6) (Melatonin 3 mg Tablet) 1 Each Tablet, 6 MG PO HS 06/28/17 Calcium Carbonate (TUMS ULTRA) 400 Mg Tab.chew, 2-3 TAB.CHEW PO DAILY, TAB.CHEW 06/28/17 Aspirin (ASPIR 81) 81 Mg Tablet.dr, 1 TAB PO QDAY, TAB 1/12/18 Redfox-3 Fatty Acids/Fish Oil (OMEGA 3 1,000 MG SOFTGEL) 1 Each Capsule, 1 EACH PO BID 08/07/15 Cholecalciferol (Vitamin D3) (VITAMIN D-3) 2,000 Unit Capsule, 1 CAP PO DAILY, CAPSULE 08/07/15 Acetaminophen (TYLENOL EXTRA STRENGTH) 500 Mg Tablet, 2 TAB PO PRN 08/07/15 Latanoprost (LATANOPROST) 2.5 Ml Drops, 1 DROP OU QHS 03/25/14 Discontinued Reported Medications Albuterol Sulfate 90 Mcg/Act (PROAIR HFA 90 MCG/ACT) 8.5 Gm Hfa.aer.ad, 2 PUFF IH Q4-6H PRN for SHORTNESS OF BREATH, INHALER 06/28/17 Lutein (LUTEIN) 20 Mg Tablet, 1 TAB PO DAILY 08/07/15 Discontinued Scripts Apixaban (ELIQUIS) 5 Mg Tablet, 5 MG PO BID, #60 TAB 0 Refills Prov:KENNA BROOKS MD 03/19/18 Atenolol (ATENOLOL) 25 Mg Tablet, 1 TAB PO BID for 90 Days, #180 TAB 4 Refills Prov:DENISA SU MD 09/10/17 Montelukast Sodium (MONTELUKAST SODIUM) 10 Mg Tablet, 1 TAB PO QDAY for 90 Days, #90 TAB 4 Refills Prov:DENISA SU MD 09/10/17 Reviewed Nurses Notes: Yes Hx Smoking: No Smoking Status: Never Smoker Exposure to Second Hand Smoke?: No Hx Substance Use Disorder: No Hx Alcohol Use: Yes (OCC) Constitutional Vital Sign - Last 24 Hours 03/19/18 03/19/18 03/19/18 03/19/18 21:33 21:33 21:41 21:56 Temp 97.5 Pulse 84 80 81 Resp 18 19 8 B/P (MAP) 130/103 130/103 (112) Pulse Ox 93 92 92 O2 Delivery Room Air 03/19/18 03/19/18 03/19/18 03/19/18 22:00 22:11 22:26 22:30 Pulse 73 Resp 24 11 B/P (MAP) 105/80 (88) 102/83 (89) Pulse Ox 95 92 03/19/18 03/19/18 03/19/183/18 22:35 22:50 23:00 23:05 Pulse 71 72 67 Resp 11 18 16 B/P (MAP) 105/83 (90) Pulse Ox 92 92 91 03/19/18 03/19/18 03/19/18 03/19/18 23:20 23:30 23:35 23:40 Pulse 71 70 68 Resp 9 13 10 B/P (MAP) 108/75 (86) Pulse Ox 92 91 92 03/19/18 03/20/18 23:55 00:00 Pulse 66 Resp 11 B/P (MAP) 115/87 (96) Pulse Ox 91 Physical Exam General Appearance: The patient is alert. No acute distress. Eyes: Pupils are equal, round. No pallor, injection or icterus. ENT: Mucous membranes are moist. Neck: Supple and non tender. Respiratory: Lungs are clear to auscultation. Cardiovascular: Regular rate and rhythm. No murmurs, gallops or rubs. Normal capillary refill. No edema. Gastrointestinal: Abdomen is soft and non tender. Nondistended. Normal active bowel sounds. Neurological: Alert and oriented x3. Skin: Warm and dry. Musculoskeletal: No tenderness in palpation of the cervical, thoracic and lumbar spine. DIFFERENTIAL DIAGNOSIS: After history and physical exam, differential diagnosis was considered for new onset of atrial fibrillation at urgent care, but looks like it's back in a normal sinus rhythm at this time. Also with a history of chest pain and shortness of breath earlier with exertion, no chest pain at this time and no shortness of breath at this time. No history of CT but does have a mitral valve problem. Medical Decision Making Data Points Result Diagram: 03/19/18214103/19/182141 Laboratory Hematology Test 03/19/18 21:42 Red Blood Count 5.17 M/uL (4.17-5.56) Mean Corpuscular Volume 87.8 fL (80.0-96.0) Mean Corpuscular Hemoglobin 30.0 pg (26.0-33.0) Mean Corpuscular Hemoglobin Concent 34.2 g/dL (32.0-36.0) Red Cell Distribution Width 15.0 % (11.5-14.5) Mean Platelet Volume 7.5 fL (7.2-11.1) Neutrophils (%) (Auto) 61.3 % (39.4-72.5) Lymphocytes (%) (Auto) 26.8 % (17.6-49.6) Monocytes (%) (Auto) 10.3 % (4.1-12.4) Eosinophils (%) (Auto) 0.4 % (0.4-6.7) Basophils (%) (Auto) 1.2 % (0.3-1.4) Nucleated RBC Relative Count (auto) 0.0 /100WBC Neutrophils # (Auto) 3.0 K/uL (2.0-7.4) Lymphocytes # (Auto) 1.3 K/uL (1.3-3.6) Monocytes # (Auto) 0.5 K/uL (0.3-1.0) Eosinophils # (Auto) 0.0 K/uL (0.0-0.5) Basophils # (Auto) 0.1 K/uL (0.0-0.1) Nucleated RBC Absolute Count (auto) 0.00 K/uL D-Dimer Quantitative (PE/DVT) 0.43 ug/ml (0-0.50) Sodium Level 136 mmol/L (137-145) Potassium Level 3.9 mmol/L (3.5-5.0) Chloride Level 97 mmol/L (98-107) Carbon Dioxide Level 28 mmol/L (22-31) Blood Urea Nitrogen 20 mg/dl (7-18) Creatinine 0.90 mg/dl (0.52-1.04) Glomerular Filtration Rate Calc > 60.0 Random Glucose 101 mg/dl (75-110) Calcium Level 9.4 mg/dl (8.4-10.2) Total Bilirubin 0.5 mg/dl (0.2-1.3) Aspartate Amino Transf (AST/SGOT) 36 U/L (0-35) Alanine Aminotransferase (ALT/SGPT) 32 U/L (0-56) Alkaline Phosphatase 70 U/L (0-126) Troponin I < 0.012 ng/ml B-Type Natriuretic Peptide 133 pg/ml (0-100) Total Protein 7.4 g/dl (6.3-8.2) Albumin 4.3 g/dl (3.5-5.0) Chemistry Test 03/19/18 21:42 White Blood Count 4.8 k/uL (4.5-11.0) Red Blood Count 5.17 M/uL (4.17-5.56) Hemoglobin 15.5 g/dL (12.0-16.0) Hematocrit 45.4 % (34.0-47.0) Mean Corpuscular Volume 87.8 fL (80.0-96.0) Mean Corpuscular Hemoglobin 30.0 pg (26.0-33.0) Mean Corpuscular Hemoglobin Concent 34.2 g/dL (32.0-36.0) Red Cell Distribution Width 15.0 % (11.5-14.5) Platelet Count 205 K/uL (150-450) Mean Platelet Volume 7.5 fL (7.2-11.1) Neutrophils (%) (Auto) 61.3 % (39.4-72.5) Lymphocytes (%) (Auto) 26.8 % (17.6-49.6) Monocytes (%) (Auto) 10.3 % (4.1-12.4) Eosinophils (%) (Auto) 0.4 % (0.4-6.7) Basophils (%) (Auto) 1.2 % (0.3-1.4) Nucleated RBC Relative Count (auto) 0.0 /100WBC Neutrophils # (Auto) 3.0 K/uL (2.0-7.4) Lymphocytes # (Auto) 1.3 K/uL (1.3-3.6) Monocytes # (Auto) 0.5 K/uL (0.3-1.0) Eosinophils # (Auto) 0.0 K/uL (0.0-0.5) Basophils # (Auto) 0.1 K/uL (0.0-0.1) Nucleated RBC Absolute Count (auto) 0.00 K/uL D-Dimer Quantitative (PE/DVT) 0.43 ug/ml (0-0.50) Glomerular Filtration Rate Calc > 60.0 Calcium Level 9.4 mg/dl (8.4-10.2) Total Bilirubin 0.5 mg/dl (0.2-1.3) Aspartate Amino Transf (AST/SGOT) 36 U/L (0-35) Alanine Aminotransferase (ALT/SGPT) 32 U/L (0-56) Alkaline Phosphatase 70 U/L (0-126) Troponin I < 0.012 ng/ml B-Type Natriuretic Peptide 133 pg/ml (0-100) Total Protein 7.4 g/dl (6.3-8.2) Albumin 4.3 g/dl (3.5-5.0) Coagulation Test 03/19/18 21:42 D-Dimer Quantitative (PE/DVT) 0.43 ug/ml EKG/Imaging EKG Interpretation 12 lead EKG: Rhythm: normal sinus rhythm, rate 77 [place]: normal QRS: normal ST segments: normal Imaging Examination: CHEST SINGLE AP Comparison: 08/10/2017 and earlier. History: Atrial fibrillation. Findings: Unchanged pulmonary hyperexpansion. Cardiac and hilar contour size is within normal limits. No consolidation, nodule, or peribronchial inflammation. No pneumothorax, edema, or effusion. Incompletely visualized cervical and lumbar spine fusions. No acute osseous abnormality. IMPRESSION: No evidence of acute cardiopulmonary disease. Report Dictated By: Petr Farrell MD at 03/19/2018 10:12 PM ED Course/Re-evaluation Clinical Indication for ER IV: IV Access ED Course When the patient arrived in the ER, her atrial fibrillation had converted to a normal sinus rhythm. Patient has no further pain or shortness of breath at this time. Labs were obtained and her labs are unremarkable with a normal troponin. I did review her medications and she is on carvedilol, losartan, milrinone/hydrochlorothiazide, and the low-dose aspirin daily. Based on new on set atrial fibrillation and history of valvular disease I called and consulted cardiology. Her regular technology sales specialist, Dr. Morton, was regional administrative assistant for the cardiology group and I was able to speak to him. After our discussion, we will stop her aspirin and start her on Eliquis 5 mg twice a day. We will also need to stop her meloxicam for GI bleeding risk. Will not be changing any of her other cardiac medications. Dr. Morton would like to see her in his office and asked if she would call their office to make an appointment for the next few days. I assessed the patient to call and speak with Dr. Su to discuss options to help with her arthritis pain management given the fact that we are stopping her meloxicam. I also let the patient know she is a little bit dehydrated as well given the fact that her BUN/creatinine ratio is 20/0.9, and she will increase her fluid intake. Decision to Disposition Date: Mar 19, 2018 Decision to Disposition Time: 23:39 Depart Departure Latest Vital Signs Vital Signs Date Time Temp Pulse Resp B/P (MAP) Pulse Ox O2 Delivery O2 Flow Rate FiO2 03/20/18 00:00 115/87 (96) 03/19/18 23:55 66 11 91 03/19/18 21:33 97.5 Room Air Impression: Primary Impression: Atrial fibrillation with RVR Condition: Improved Disposition: HOME OR SELF-CARE Referrals: DENISA SU MD (PCP) New Scripts Apixaban (ELIQUIS) 5 Mg Tablet 5 MG PO BID, #60 TAB 0 Refills Prov: KENNA BROOKS MD 03/19/18 Patient Instructions: A-fib (Atrial Fibrillation) (ED) Additional Instructions: Start the blood thinner Eliquis 5mg twice a day. Call Dr. Morton's office tomorrow to schedule a follow-up appointment with him. Stop your daily low dose Aspirin. Stop your Meloxicam. Call and arrange an appointment with Dr. Su for discussion about the arthritis pain and need to stop the Meloxicam. KENNA BROOKS MD Mar 19, 2018 21:44
[2018-03-19] MEDS ORDERED: ASPIRIN 81 MG CHEW PO ONE (22:00)
[2018-03-19 22:05] LABS: PLATELET COUNT, AUTOMATED 205 K/uL (150-450)
--- NOTE | 2018-03-19 22:18 | RADIOLOGY IMAGING REPORT ---
FACILITY: [facility] PATIENT NAME: Telma Joseph : 1940 MR: [id number] V: [id number] EXAM DATE: ORDERING PHYSICIAN: KENNA BROOKS TECHNOLOGIST: Location: [facility] Patient: Telma Joseph : 1940 Visit/Account:[id number] Date of Sevice: 03/19/2018 Examination: CHEST SINGLE AP Comparison: 08/10/2017 and earlier. History: Atrial fibrillation. Findings: Unchanged pulmonary hyperexpansion. Cardiac and hilar contour size is within normal limits. No consolidation, nodule, or peribronchial inflammation. No pneumothorax, edema, or effusion. Incomp letely visualized cervical and lumbar spine fusions. No acute osseous abnormality. IMPRESSION: No evidence of acute cardiopulmonary disease. Report Dictated By: Petr Farrell MD at 03/19/2018 10:12 PM Report E-Signed By: Petr Farrell MD at 03/19/2018 10:14 PM WSN:[id number]
--- NOTE | 2018-03-19 22:24 | EKG ---
FACILITY: [facility] PATIENT NAME: LETICIA MCLAUGHLIN : [id number] MR: [id number] V: [id number] EXAM DATE: ORDERING PHYSICIAN: KENNA BROOKS TECHNOLOGIST: FEROZ Mckeon Reason : CARDIAC Blood Pressure : / mmHG Vent. Rate : 077 BPM Atrial Rate : 077 BPM P-R Int : 150 ms QRS Dur : 082 ms QT Int : 410 ms P-R-T Axes : 040 044 083 degrees QTc Int : 463 ms Normal sinus rhythm Anteroseptal infarct , age undetermined Abnormal ECG When compared to the ECG of, 08.10.2017 No significant change was found Confirmed by Michelet Martin ([id number]) on 03/19/2018 10:59:25 PM Referred By: Confirmed By:Michelet Soliman
[2018-03-19] MEDS ORDERED: APIX5TAB PO ×2 (23:41→23:51)
[2018-03-19] MEDS ORDERED: APIXABAN 2.5 MG TABLET PO ONE (23:55)
[2018-03-20] VITALS: BP 115/87
== END 2018-03-20 00:16 | disposition home or self-care (01) ==
LOC: ER 21:41
DX: I48.2 Chronic atrial fibrillation (principal); Z79.01 Long term (current) use of anticoagulants; R06.02 Shortness of breath
CPT/HCPCS: 71045; 83880; 84484; 85025; 85379; 93005; 99284; A9270; 82040; 82247; 82310; 82374; 82435; 82565; 82947; 84075; 84132; 84155; 84295; 84450; 84460; 84520

== ENCOUNTER → 2018-05-09 | Outpatient (CLI) | payer MEDICARE, BC ==
[~2018-05-09] MED LIST changes: +APIX5TAB PO; +CARV12.578 PO; +CARV25TA78 PO; +DICL100G39 TOP
--- NOTE | 2018-05-09 13:49 | RADIOLOGY IMAGING REPORT ---
FACILITY: [facility] PATIENT NAME: LETICIA MCLAUGHLIN : [id number] MR: [id number] V: [id number] EXAM DATE: ORDERING PHYSICIAN: DENISA SU TECHNOLOGIST: Heena Leone PROCEDURE:BILATERAL DIGITAL SCREENING MAMMOGRAM WITH CAD ASSISTED INTERPRETATION & 3D TOMOSYNTHESIS COMPARISON:Prior mammograms dated 04/16/17, 03/14/16, 02/16/15, 02/10/14, 01/23/13, 01/23/12 INDICATIONS:SCREENING FINDINGS: A small to moderate amount of fibroglandular tissue is seen throughout the breasts. The parenchymal pattern has remained stable allowing for difference in mammographic technique & patient positioning. There is no evidence of malignant appearing mass, malignant appearing calcification or other secondary sign of malignancy in either breast. DIAGNOSTIC CATEGORY 1--NEGATIVE. RECOMMENDATIONS: ROUTINE MAMMOGRAM AND CLINICAL EVALUATION. IMPRESSION: BIRADS 1: Negative. No significant abnormality is seen. Dictated by: Paula De León M.D. on 05/09/2018 at 11:43 Transcribed by: RACIEL on 05/09/2018 at 13:28 Approved by: Paula De León M.D. on 05/09/2018 at 13:48 [facility]
== END ==
LOC: MAMO 04:00
PROVIDERS: ATTEND Family Medicine
DX: Z12.31 Encounter for screening mammogram for malignant neoplasm of breast (principal)
CPT/HCPCS: 77063; 77067

== ENCOUNTER → 2018-06-19 | Outpatient (REF) | payer MEDICARE, BC ==
[~2018-06-19] MED LIST changes: +ASCO-182 PO; -LOSA50TA74 PO; +LOSA50TA80 PO; +MONT10TA PO; +PSYL0.5241 PO; +TRAM-420 PO; +WARF3TAB14 PO; +[UNRECOGNIZED DRUG - CODE] PO
== END ==
LOC: ZZSENDIN 15:18
PROVIDERS: ATTEND Physical Medicine & Rehabilitation
DX: Z79.899 Other long term (current) drug therapy (principal)
CPT/HCPCS: 82310; 82374; 82435; 82565; 82947; 84132; 84295; 84520

== ENCOUNTER 2018-06-23 19:07 | Emergency (ER) | payer MEDICARE, BC ==
--- NOTE | 2018-06-23 19:16 | ER Report ---
History and Physical Time Seen By MD: 19:09 Hx. of Stated Complaint: pt sat back on the bed and hit left cheek on headboard. no loc, no bruising, no abrassions. concerned because she started warfarin on may 23. would also like cath spot in rt groin looked at. says she has a large hematoma there HPI/ROS CHIEF COMPLAINT: Hit face on headboard HISTORY OF PRESENT ILLNESS: This is a 77-year-old female presents to the [facility] department after hitting her left cheek on her headboard. The patient is status post Maze procedure for A. fib as well as mitral valve replacement. Patient was started on Coumadin May 23. Today the patient sat down on her bed, tipped over to the left side hitting her cheek on the side of a headboard, they were instructed to come to the ER if she were to strike her head., The patient denies loss of consciousness, there is no bruising or any identifiable injury to the left cheek. The patient was also concerned that the right groin access site for her Maze procedure is becoming increasingly more uncomfortable. Patient was evaluated by home health today as well, they were concerned that it could potentially be an infection developing. Patient states that she developed significant pain just prior to arrival, she did not take her tramadol this evening either. The area that she is concerned about is noted to have a firm lump, consistent with what appears to be a hematoma, there is also some erythema surrounding the hematoma. She denies fevers or chills. Denies chest pain or shortness of breath. No nausea or vomiting. REVIEW OF SYSTEMS: Constitutional: No fever, no chills. Eyes: No discharge. ENT: No sore throat. Cardiovascular: No chest pain, no palpitations. Respiratory: No cough, no shortness of breath. Gastrointestinal: No abdominal pain, no vomiting. Genitourinary: No hematuria. Musculoskeletal: As above. Skin: As above. Neurological: No headache. Allergies: Coded Allergies: lisinopril (Verified Allergy, Severe, LIPS SWELL, 06/23/18) nitrofurantoin (Verified Allergy, Severe, Shortness of Breath, 06/23/18) ROE Inhibitors (Verified Allergy, Intermediate, SWELLING, 06/23/18) Pt does not think she is allergic to these medications pentazocine (Verified Allergy, Intermediate, N/V, 06/23/18) oxycodone (Verified Adverse Reaction, Severe, NAUSEA AND VOMITING, 06/23/18) Home Meds Active Scripts Tramadol Hcl (TRAMADOL HCL) 50 Mg Tablet, 1-2 TAB PO Q6H PRN for pain, #45 TAB Prov:DENISA SU MD 06/16/18 Levothyroxine Sodium (LEVOTHYROXINE SODIUM) 50 Mcg Tablet, 1 TAB PO QDAY for 90 Days, #90 TAB 4 Refills Prov:DENISA SU MD 05/14/18 Diclofenac Sodium 1% Gel (VOLTAREN 1% GEL) 100 Gm Gel..gram., 2 GM TOP TID for 30 Days, #1 TUBE Prov:DENISA SU MD 03/31/18 Omeprazole (OMEPRAZOLE) 20 Mg Capsule.dr, 1 CAP PO BID for 90 Days, #180 CAP 1 Refill Prov:DENISA SU MD 12/09/17 Fluticasone Prop 50 Mcg Ns (FLONASE 50 MCG NS) 16 Gm [place].susp, 1 SPRAY NS DAILY PRN for PRN for 90 Days, #3 BOT 4 Refills Prov:DENISA SU MD 11/04/17 Albuterol Sulfate 0.083% (ALBUTEROL SULFATE 0.083%) 2.5 Mg/3 Ml Vial.neb, 2.5 MG INH Q4-6H for cough, #1 BOX 0 Refills Prov:ARMAAN RILEY MD 08/10/17 Reported Medications Warfarin Sodium (WARFARIN SODIUM) 5 Mg Tablet, 6 MG PO, TAB 6mg Saturday, , Saturday, Saturday, Saturday06/24/18 Warfarin Sodium (WARFARIN SODIUM) 5 Mg Tablet, 3 MG PO QODAY, TAB 3mg po Saturday and Saturday only 06/24/18 Montelukast Sodium (SINGULAIR) 10 Mg Tablet, 1 TAB PO QDAY, TAB 06/16/18 Psyllium Husk (METAMUCIL) 0.52 Gm Capsule, 1 CAP PO DAILY, CAPSULE 06/16/18 Bioflav,Lemon/Vit Bcomp&C (LIPO-FLAVONOID PLUS CAPLET) 1 Each Tablet, 1 EACH PO BID 06/16/18 Acetaminophen/Chlorpheniramine (CORICIDIN HBP TABLET) 1 Each Tablet, 1 EACH PO PRN 06/16/18 Ascorbic Acid (VITAMIN C) 500 Mg Tablet, 1 TAB PO DAILY, TAB 06/16/18 Cyanocobalamin (Vitamin B-12) (VITAMIN B-12) 1,000 Mcg Tablet.er, 1 TAB PO DAILY 12/09/17 Vit C/E/Zn/Coppr/Lutein/Zeaxan (Preservision Areds 2 Softgel) 1 Each Capsule, 1 CAP PO BID 12/09/17 Melatonin/Pyridoxine HCl (B6) (Melatonin 3 mg Tablet) 1 Each Tablet, 6 MG PO HS 06/28/17 Calcium Carbonate (TUMS ULTRA) 400 Mg Tab.chew, 2-3 TAB.CHEW PO DAILY, TAB.CHEW 06/28/17 [place]-3 Fatty Acids/Fish Oil (OMEGA 3 1,000 MG SOFTGEL) 1 Each Capsule, 1 EACH PO BID 08/07/15 Cholecalciferol (Vitamin D3) (VITAMIN D-3) 2,000 Unit Capsule, 1 CAP PO DAILY, CAPSULE 08/07/15 Acetaminophen (TYLENOL EXTRA STRENGTH) 500 Mg Tablet, 2 TAB PO PRN 08/07/15 Latanoprost (LATANOPROST) 2.5 Ml Drops, 1 DROP OU QHS 03/25/14 Discontinued Reported Medications Warfarin Sodium (WARFARIN SODIUM) 3 Mg Tablet, 1-2 TAB PO DIRECTED, TAB 06/16/18 Past Medical/Surgical History The patient has a past medical and surgical history of mitral valve prolapse with replacement, atrial fibrillation, Maze procedure for A. fib, hypertension, asthma, cervical fusion, colonoscopy, GERD, arthritis, left foot fracture, left arm fracture, chronic back pain, wears glasses, thyroid surgery, shingles, cardiac catheterization, ventral hernia repair, bladder disease, cholecystectomy, hysterectomy, fibroid tumors, left wrist fusion and lumbar fusion, tonsillectomy, bilateral cataract surgery, eyelid surgery. Reviewed Nurses Notes: Yes Hx Smoking: No Smoking Status: Never Smoker Exposure to Second Hand Smoke?: No Hx Substance Use Disorder: No Hx Alcohol Use: Yes (OCC) Constitutional Vital Sign - Last 24 Hours 06/23/18 06/23/18 06/23/18 06/23/18 19:11 19:13 19:15 19:22 Temp 98.2 Pulse 115 103 Resp 12 B/P (MAP) 147/101 147/101 (116) 159/98 (118) Pulse Ox 91 91 O2 Delivery Room Air 06/23/18 06/23/18 06/23/18 06/23/18 19:30 19:37 19:45 19:50 Pulse 99 98 B/P (MAP) 165/99 (121) 139/117 (124) Pulse Ox 88 91 06/23/18 06/23/18 06/23/18 06/23/18 19:58 20:00 20:05 20:15 Pulse 97 B/P (MAP) 152/102 (119) 144/106 (119) Pulse Ox 93 O2 Flow Rate 2.0 06/23/18 06/23/18 06/23/18 06/23/18 20:20 20:30 20:35 20:40 Pulse 95 94 95 B/P (MAP) 148/109 (122) Pulse Ox 92 87 90 06/23/18 06/23/18 06/23/18 06/23/18 20:45 20:55 21:00 21:10 Pulse 93 90 B/P (MAP) 148/100 (116) 148/95 (112) Pulse Ox 96 97 06/23/18 06/23/18 06/23/18 06/23/18 21:15 21:25 21:30 21:40 Pulse 95 ??? B/P (MAP) 143/91 (108) 152/99 (116) Pulse Ox 86 06/23/18 06/23/18 06/23/18 06/23/18 21:55 22:00 22:10 22:25 Pulse 97 93 94 B/P (MAP) 152/102 (119) Pulse Ox 92 96 82 06/23/18 06/23/18 06/23/18 06/23/18 22:30 22:35 22:50 23:00 Pulse 98 93 B/P (MAP) 153/98 (116) 155/90 (111) Pulse Ox 97 97 06/23/18 06/23/18 06/23/18 06/23/18 23:30 23:35 23:50 23:55 Pulse 98 135 150 B/P (MAP) 150/89 (109) Pulse Ox 87 85 84 06/24/18 06/24/18 06/24/18 06/24/18 00:00 00:10 00:25 00:30 Pulse 115 109 B/P (MAP) 127/72 (90) 118/90 (99) Pulse Ox 100 100 Physical Exam General Appearance: The patient is alert, has no immediate need for airway protection and no signs of toxicity. Eyes: Pupils equal and round no pallor or injection. ENT, Mouth: Mucous membranes are moist. Respiratory: There are no retractions, lungs are clear to auscultation. Cardiovascular: Regular rate and rhythm, very faint systolic murmur, no clicks or rubs. Gastrointestinal: Abdomen is soft and non tender, no masses, bowel sounds normal. Neurological: Alert and oriented 4. Moving all extremities. Following all commands. No focal neuro deficits. Skin: Right groin noted to have a large hematoma, no fluctuance noted, erythema to the surrounding tissue. No drainage. Incision to the chest is well a pproximated, Steri-Strips remain in place, no erythema or signs of infection. Musculoskeletal: Neck is supple non tender. Extremities are nontender, nonswollen and have full range of motion. DIFFERENTIAL DIAGNOSIS: After history and physical exam differential diagnosis was considered for cellulitis, concussion, intracranial bleed, contusion. Medical Decision Making Data Points Result Diagram: 06/23/18215406/23/182154 Laboratory Hematology Test 06/23/18 21:55 Red Blood Count 3.82 M/uL (4.17-5.56) Mean Corpuscular Volume 87.8 fL (80.0-96.0) Mean Corpuscular Hemoglobin 28.8 pg (26.0-33.0) Mean Corpuscular Hemoglobin Concent 32.8 g/dL (32.0-36.0) Red Cell Distribution Width 16.4 % (11.5-14.5) Mean Platelet Volume 6.8 fL (7.2-11.1) Neutrophils (%) (Auto) 72.6 % (39.4-72.5) Lymphocytes (%) (Auto) 11.9 % (17.6-49.6) Monocytes (%) (Auto) 14.4 % (4.1-12.4) Eosinophils (%) (Auto) 0.5 % (0.4-6.7) Basophils (%) (Auto) 0.6 % (0.3-1.4) Nucleated RBC Relative Count (auto) 0.0 /100WBC Neutrophils # (Auto) 4.8 K/uL (2.0-7.4) Lymphocytes # (Auto) 0.8 K/uL (1.3-3.6) Monocytes # (Auto) 1.0 K/uL (0.3-1.0) Eosinophils # (Auto) 0.0 K/uL (0.0-0.5) Basophils # (Auto) 0.0 K/uL (0.0-0.1) Nucleated RBC Absolute Count (auto) 0.00 K/uL Prothrombin Time 25.4 seconds (12.0-14.4) Prothromb Time International Ratio 2.27 Activated Partial Thromboplast Time 49 seconds (23-35) Sodium Level 130 mmol/L (137-145) Potassium Level 4.1 mmol/L (3.5-5.0) Chloride Level 93 mmol/L (98-107) Carbon Dioxide Level 28 mmol/L (22-31) Blood Urea Nitrogen 17 mg/dl (7-18) Creatinine 0.80 mg/dl (0.52-1.04) Glomerular Filtration Rate Calc > 60.0 Random Glucose 112 mg/dl (75-110) Calcium Level 9.0 mg/dl (8.4-10.2) Total Bilirubin 0.6 mg/dl (0.2-1.3) Aspartate Amino Transf (AST/SGOT) 24 U/L (0-35) Alanine Aminotransferase (ALT/SGPT) 29 U/L (0-56) Alkaline Phosphatase 109 U/L (0-126) Total Protein 6.9 g/dl (6.3-8.2) Albumin 3.7 g/dl (3.5-5.0) Chemistry Test 06/23/18 21:55 White Blood Count 6.6 k/uL (4.5-11.0) Red Blood Count 3.82 M/uL (4.17-5.56) Hemoglobin 11.0 g/dL (12.0-16.0) Hematocrit 33.5 % (34.0-47.0) Mean Corpuscular Volume 87.8 fL (80.0-96.0) Mean Corpuscular Hemoglobin 28.8 pg (26.0-33.0) Mean Corpuscular Hemoglobin Concent 32.8 g/dL (32.0-36.0) Red Cell Distribution Width 16.4 % (11.5-14.5) Platelet Count 301 K/uL (150-450) Mean Platelet Volume 6.8 fL (7.2-11.1) Neutrophils (%) (Auto) 72.6 % (39.4-72.5) Lymphocytes (%) (Auto) 11.9 % (17.6-49.6) Monocytes (%) (Auto) 14.4 % (4.1-12.4) Eosinophils (%) (Auto) 0.5 % (0.4-6.7) Basophils (%) (Auto) 0.6 % (0.3-1.4) Nucleated RBC Relative Count (auto) 0.0 /100WBC Neutrophils # (Auto) 4.8 K/uL (2.0-7.4) Lymphocytes # (Auto) 0.8 K/uL (1.3-3.6) Monocytes # (Auto) 1.0 K/uL (0.3-1.0) Eosinophils # (Auto) 0.0 K/uL (0.0-0.5) Basophils # (Auto) 0.0 K/uL (0.0-0.1) Nucleated RBC Absolute Count (auto) 0.00 K/uL Prothrombin Time 25.4 seconds (12.0-14.4) Prothromb Time International Ratio 2.27 Activated Partial Thromboplast Time 49 seconds (23-35) Glomerular Filtration Rate Calc > 60.0 Calcium Level 9.0 mg/dl (8.4-10.2) Total Bilirubin 0.6 mg/dl (0.2-1.3) Aspartate Amino Transf (AST/SGOT) 24 U/L (0-35) Alanine Aminotransferase (ALT/SGPT) 29 U/L (0-56) Alkaline Phosphatase 109 U/L (0-126) Total Protein 6.9 g/dl (6.3-8.2) Albumin 3.7 g/dl (3.5-5.0) Coagulation Test 06/23/18 21:55 Prothrombin Time 25.4 seconds Prothromb Time International Ratio 2.27 Activated Partial Thromboplast Time 49 seconds EKG/Imaging Imaging Location: [facility] - [place] Patient: Telma Joseph : 1940 Visit/Account:[id number] Date of Sevgómez: 06/23/2018 US SOFT TISSUE NON-SPECIFIC HISTORY: evaluate for abscess At the point of palpable concern in the right groin there is a heterogenous mass lesion measuring over 7.5 x 5.2 x 6.4 cm. in size. There is active vascular flow noted within the mass lesion with arterial waveforms suggesting this represents a pseudoaneurysm from the right common femoral artery. IMPRESSION: 1. Heterogenous 7.5 x 5.2 x 6.4 cm mass in the right groin with vascular flow suggesting a pseudoaneurysm likely arising from the right common femoral artery. If the patient has had a recent catheterization this almost certainly represents a pseudoaneurysm from that procedure. Recommend clinical correlation. Results were discussed with LILI FULTON at 06/23/2018 9:16 PM. Report Dictated By: Sony Roberto MD at 06/23/2018 9:08 PM Report E-Signed By: Sony Roberto MD at 06/23/2018 9:25 PM WSN:[id number] ED Course/Re-evaluation Clinical Indication for ER IV: IV Access ED Course The patient was admitted to room. A history and physical were obtained. Differential diagnoses were considered. As the patient did not have a significan t fall, no significant impact to the head, no CT. The patient was concerned about the pain and the potential infection and the size of her right groin. I did an ultrasound, which did show a Heterogenous 7.5 x 5.2 x 6.4 cm mass in the right groin with vascular flow suggesting a pseudoaneurysm likely arising from the right common femoral artery. I did review the results with the patient and her daughter who is at the bedside, as she is on warfarin, I did tell her I was concerned that with the increasing pain, size, possible rupture as well as the potential infection developing that it would be best to speak with surgery, I did speak with Dr. Rudd as noted below, he recommended transferring the patient to [facility], where she had the procedures. I did speak with Dr. Plata, the hospitalist at [facility] [place], as noted below. The patient will be transferred to [facility] [place] via ground ambulance. An IV was started. A CBC, CMP, PT and INR were collected. CBC showing RBCs 3.82, hemoglobin and hematocrit 11.0 and 33.5, chemistry showing sodium 1:30, INR 2.27. PTT 49. The patient was given 1 g IV ceftriaxone. 06/23/2018 9:40:02 pm I did speak with Dr. Mazariegos the surgeon risk prevention engineer, we reviewed the case and he suggested transfer to [facility]. 06/23/2018 10:04:03 pm I did speak with Dr. Plata, the hospitalist at [facility], he will contact vascular surgery. 06/23/2018 10:21:[address] Plata did accept the patient into his services, the patient will be transferred to [facility] via ground ambulance. Decision to Disposition Date: Jun 23, 2018 Decision to Disposition Time: 22:19 Depart Departure Latest Vital Signs Vital Signs Date Time Temp Pulse Resp B/P (MAP) Pulse Ox O2 Delivery O2 Flow Rate FiO2 06/24/18 00:30 118/90 (99) 06/24/18 00:25 109 100 06/23/18 19:58 2.0 06/23/18 19:11 98.2 12 Room Air Impression: Primary Impression: Pseudoaneurysm of right femoral artery Additional Impressions: S/P mitral valve replacement Status post Maze operation for atrial fibrillation Condition: Improved Disposition: XFER TO ACUTE CARE HOSP[facility] ([facility]) Referrals: DENISA SU MD (PCP) Problem Qualifiers LILI FULTON FULL SERVICE VENDING DRIVER-BC Jun 23, 2018 19:16
[2018-06-23] MEDS ORDERED: traMADol 50 MG TAB PO ONE (19:35)
[2018-06-23] MEDS ORDERED: MORPHINE 2 MG/ML SYR IM ONE (20:25)
--- NOTE | 2018-06-23 21:29 | RADIOLOGY IMAGING REPORT ---
FACILITY: [facility] PATIENT NAME: Telma Joseph : 1940 MR: [id number] V: [id number] EXAM DATE: ORDERING PHYSICIAN: LILI FULTON TECHNOLOGIST: Location: [facility] - [place] Patient: Telma Joseph : 1940 Visit/Account:[id number] Date of Sevice: 06/23/2018 US SOFT TISSUE NON-SPECIFIC HISTORY: evaluate for abscess At the point of palpable concern in the right groin there is a heterogenous mass lesion measuring ove r 7.5 x 5.2 x 6.4 cm. in size. There is active vascular flow noted within the mass lesion with arteri al waveforms suggesting this represents a pseudoaneurysm from the right common femoral artery. IMPRESSION: 1. Heterogenous 7.5 x 5.2 x 6.4 cm mass in the right groin with vascular flow suggesting a pseudoaneu rysm likely arising from the right common femoral artery. If the patient has had a recent catheteriza tion this almost certainly represents a pseudoaneurysm from that procedure. Recommend clinical correl ation. Results were discussed with LILI FULTON at 06/23/2018 9:16 PM. Report Dictated By: Sony Roberto MD at 06/23/2018 9:08 PM Report E-Signed By: Sony Roberto MD at 06/23/2018 9:25 PM WSN:[id number]
[2018-06-23 22:13] LABS: INR 2.27
[2018-06-23 22:14] LABS: PLATELET COUNT, AUTOMATED 301 K/uL (150-450)
[2018-06-23] MEDS ORDERED: cefTRIAXone 1 GM VIAL IVP ONE (22:15)
[2018-06-23] MEDS ORDERED: ONDANSETRON 4 MG/2 ML VIAL IVP ONE (22:40)
[2018-06-24] MEDS ORDERED: WARF5TAB23 PO ×2 (00:27→00:29)
[2018-06-24 00:30] VITALS: BP 118/90
[2018-06-24] MEDS ORDERED: MORPHINE 2 MG/ML SYR IVP ONE (00:40)
== END 2018-06-24 00:55 | disposition short-term general hospital (02) ==
LOC: ER 19:29
DX: I72.4 Aneurysm of artery of lower extremity (principal); Z95.2 Presence of prosthetic heart valve; Z79.01 Long term (current) use of anticoagulants; W22.8XXA Striking against or struck by other objects, initial encounter
CPT/HCPCS: 76999; 85025; 85610; 85730; 96372; 96374; 96375; 99285; A9270; J0696; J2270; J2405; 82040; 82247; 82310; 82374; 82435; 82565; 82947; 84075; 84132; 84155; 84295; 84450; 84460; 84520

== ENCOUNTER → 2018-06-24 | Outpatient (CLI) | payer MEDICARE, BC ==
[~2018-06-24] MED LIST changes: +ONDA4TAB97 PO; +WARF5TAB23 PO
== END ==
LOC: AMB 00:32
PROVIDERS: ATTEND Nurse Practitioner
DX: I72.4 Aneurysm of artery of lower extremity (principal)
CPT/HCPCS: A0425; A0426

== ENCOUNTER → 2018-07-29 | Outpatient (CLI) | payer MEDICARE, BC ==
[~2018-07-29] MED LIST changes: +FERR325T24 PO; +FURO-45 PO; +LOSA25TA47 PO; +MELA5TAB6 PO; +METO25TA23 PO
[2018-07-29 17:08] LABS: PLATELET COUNT, AUTOMATED 198 K/uL (150-450)
== END ==
LOC: LAB 16:55
PROVIDERS: ATTEND Family Medicine
DX: D64.9 Anemia, unspecified (principal); E87.1 Hypo-osmolality and hyponatremia; J06.9 Acute upper respiratory infection, unspecified
CPT/HCPCS: 36415; 82310; 82374; 82435; 82565; 82947; 84132; 84295; 84520; 85025

== ENCOUNTER → 2018-07-29 | Outpatient (CLI) | payer MEDICARE, BC ==
[2018-07-29 12:22] LABS: INR 2.22
== END ==
LOC: LAB 10:25
PROVIDERS: ATTEND Internal Medicine Cardiovascular Disease
DX: Z51.81 Encounter for therapeutic drug level monitoring (principal); Z79.01 Long term (current) use of anticoagulants; Z95.2 Presence of prosthetic heart valve
CPT/HCPCS: 36415; 85610

== ENCOUNTER → 2018-08-12 | Outpatient (CLI) | payer MEDICARE, BC ==
[2018-08-12 09:12] LABS: INR 2.03
== END ==
LOC: LAB 08:43
PROVIDERS: ATTEND Internal Medicine Cardiovascular Disease
DX: Z51.81 Encounter for therapeutic drug level monitoring (principal); Z79.01 Long term (current) use of anticoagulants; I48.0 Paroxysmal atrial fibrillation; Z95.2 Presence of prosthetic heart valve
CPT/HCPCS: 36415; 85610

== ENCOUNTER → 2018-08-29 | Outpatient (CLI) | payer MEDICARE, BC ==
[2018-08-29 10:50] LABS: INR 1.51
== END ==
LOC: LAB 10:08
PROVIDERS: ATTEND Internal Medicine Cardiovascular Disease
DX: Z51.81 Encounter for therapeutic drug level monitoring (principal); Z79.01 Long term (current) use of anticoagulants; I48.0 Paroxysmal atrial fibrillation; Z95.2 Presence of prosthetic heart valve
CPT/HCPCS: 36415; 85610

== ENCOUNTER → 2018-09-05 | Outpatient (CLI) | payer MEDICARE, BC | LOC: LAB 10:14 | PROVIDERS: ATTEND Internal Medicine Cardiovascular Disease | DX: Z51.81 Encounter for therapeutic drug level monitoring (principal); Z79.01 Long term (current) use of anticoagulants; I48.0 Paroxysmal atrial fibrillation; Z95.2 Presence of prosthetic heart valve | CPT/HCPCS: 36415; 85610 ==

== ENCOUNTER → 2018-10-06 | Outpatient (CLI) | payer MEDICARE, BC | LOC: US 00:30 | PROVIDERS: ATTEND Surgery | DX: Z95.4 Presence of other heart-valve replacement (principal); Z98.890 Other specified postprocedural states | CPT/HCPCS: 93306 ==

== ENCOUNTER 2018-11-07 11:00 | Outpatient (RCR) | payer MEDICARE, BC ==
[2018-08-11 16:17] VITALS: BP 122/78
[2018-08-11 16:18] VITALS: BP 134/82
--- NOTE | 2018-08-11 16:45 | CARDIAC REHAB PLAN OF CARE ---
Physician: Jessenia Warner MD Patient is being seen: Karen Fernandes Medical Diagnosis: MVR Date of Onset: 05/23/18 Date of Initial Evaluation: 08/11/18 INTERVENTIONS: Due Date: 09/08/18 Patient Assessment: Patient is a 77yr old female and comes to cardiac rehab following MVR; AAA repair; Tricuspid repair; and afib ablation in May 2018. She recently had a respiratory infection which caused her to delay her start at cardiac rehab. She has a history of HTN; sleep apnea; asthma/COPD; and is a previous smoker. She also may have had a CVA following her surgery, but she cannot recall much on the subject. She is highly motivated to begin her exercise program and her goals are to become/stay active as she ages and remain independent. Exercise Assessment: During her 6MW test the patient walked a total of 1125ft for an average speed of 2.1mph. For exercise she prefers to walk laps around the track and use the NuStep. During exercise, her HR ranges between 90- 97bpmwhich is not much elevated above her resting values. Her blood pressure experiences a normal responserising to 142/76mmHg during exercise. She reports mild SOB at an RPE between 2-4. Exercise Plan: Goals: Over the next 3 months we hope the patient can progress her exercise routine to accomplish the followin. aerobically exercise for 40 minutes/session 2. that the aerobic exercise is maintained at a minimum of 4.0 METs on average, and 3. Exercise for at least 20 minutes on days away from cardiac rehab. Exercise Prescription: Mode: Walking/Track and NuStep Frequency: 3 Days/week (MWF) eventually adding in home exercises T/TH Duration: 30 minutes to start, progressing towards 40 minutes/session Intensity: between 2.0-2.5 METs with HR between 95-105bpm Education: Education will focus on symptom management/awareness and how her body should respond to exercisewhat is normal, what is not normal. Exercise Reassessment (Date: ): Exercise Discharge/Follow-Up (Date: ): Nutrition Assessment: Patient reports eating a relatively well rounded diet with inclusion of a variety of fruits/vegetables, whole grains, and leaner meats. She does try to avoid sugary processed foods. However, she does appear to have some misunderstanding of sugary vs. starch foodsconfusing corn and potatoes as vegetables. So there is some room for improvement on nutritional education. Nutrition Plan: Goals: Goals will be to help encourage this continuous healthy diet by providing positive feedback and nutritional information when appropriate. We hope to develop a better understanding of the main food groups, particularly focusing on carbohydrate identification. Intervention: Intervention will include education and social interaction on a regular basis to help keep information regular and consistent. Education: Education will focus on the main food groups, particularly carbohydrate identification and understanding. Nutrition Reassessment (Date: ): Nutrition Discharge/Follow-Up (Date: ): Psychosocial Assessment: Patient reports being prone to high stress and anxiety all her life. She does appear to hold a lot of stress in and is a sort of no nonsense kind of person. Her demeanor is relatively flat and anxious. On her Hospital Anxiety and Depression Scale (HADS) she scored moderate (8/21) for depression and low (2/21) for anxiety. She is aware that stress is not good for the body and mind, but is unaware of how to improve her stress levels. Psychosocial Plan: Goals: Our primary goal will be to help facilitate the patient in discovering her own individual way of dealing with and managing her stress level. Intervention: Intervention will be to provide education on scientifically proven ways to reduce stress, and helping the patient to experiment with these in order to help her find which way is best for her. Education: Education will focus on using exercise, nature, social experiences, yoga, meditation, deep breathing techniques, and any other stress management interventions. Psychosocial Reassessment (Date: ): Psychosocial Discharge/Follow-Up (Date: ): Physician Signature: Date: MTDD
[2018-08-13 17:26] VITALS: BP 110/78
[2018-08-13 17:27] VITALS: BP 120/82
[2018-08-15 13:18] VITALS: BP 128/84
[2018-08-15 13:19] VITALS: BP 120/72
[2018-08-18 13:07] VITALS: BP 138/92
[2018-08-18 13:08] VITALS: BP 138/88
[2018-08-20 13:13] VITALS: BP 154/90
[2018-08-20 13:14] VITALS: BP 142/88
[2018-08-23 10:09] VITALS: BP_SYST 124; BP_DIAS 88; BP_DIAS 90
[2018-08-25 17:05] VITALS: BP 138/84
[2018-08-25 17:06] VITALS: BP 122/80
[2018-08-29 13:03] VITALS: BP_SYST 132; BP_SYST 134; BP_DIAS 82; BP_DIAS 84
[2018-09-01 12:58] VITALS: BP 140/84
[2018-09-01 12:59] VITALS: BP 132/78
[2018-09-03 13:07] VITALS: BP 152/88
[2018-09-03 13:08] VITALS: BP 140/82
[2018-09-05 18:03] VITALS: BP_SYST 124; BP_SYST 128; BP_DIAS 68; BP_DIAS 88
[2018-09-08 17:05] VITALS: BP 130/88
[2018-09-08 17:13] VITALS: BP 110/80
[2018-09-10 18:07] VITALS: BP_SYST 132; BP_SYST 140; BP_DIAS 80; BP_DIAS 84
--- NOTE | 2018-09-11 11:01 | CARDIAC REHAB PLAN OF CARE ---
Physician: Jessenia Warner MD Patient is being seen: Karen Fernandes MS Medical Diagnosis: MVR Date of Onset: 05/23/18 Date of Initial Evaluation: 08/11/18 Date patient was last seen: 09/10/18 Number of treatments: 13 Number of cancellations/No Shows: 0 INTERVENTIONS: Due Date: 10/12/18 Exercise Reassessment (Date: 09/11/18): The patient has accomplished her first set of goals. She exercises on average between 35-40 minutes/session and has achieved a HR from 95-105 at every session. She has increased her intensity on the NuStep to Level 5 and accomplishes more steps during the same amount of time, demonstrating an increase in steps per minute (e.g. in 15 minutes she took 1068 steps before and now does 1176 steps in the same amount of [id number]). She has also increased her free weights from 3lbs to 4lbs. Her changes have been slow but progressive which show she is on the right track. Over the next month we hope to continue this progression by making small increases each day. By the end of the month she should aim to accomplish the following goals: Duration: 40-45 minutes/session, with introducing some activity on off days. Intensity: Increase intensity to 3.5 METs on average while on the NuStep--reach level 7 for resistance and increase speed such that she is achieving 88spm. THR zone: 100-115bpm pending normal hemodynamic response. Free Weights: Increase to 6lb weights Nutrition Reassessment (Date: 09/11/18): Patient continues to follow a well- balanced and healthy nutritional regimen. She has received nutritional information and healthy recipes to take home for education. Psychosocial Reassessment (Date: 09/11/18): Patient reports feeling better since starting to exercise more regularly. In contrast to our first meeting at her evaluation, the patient has become more social and engaged. She smiles a lot more and seems to be taking to the social aspect of CR. We hope to continue along this route by continuing to help facilitate a safe exercise environment with psotive feedback and helping her to increase her motivation. JUAQUIN
[2018-09-12 13:13] VITALS: BP 132/78
[2018-09-12 13:14] VITALS: BP 148/92
[2018-09-15 13:06] VITALS: BP_SYST 130; BP_SYST 142; BP_DIAS 70; BP_DIAS 84
[2018-09-17 13:07] VITALS: BP 140/88
[2018-09-17 13:08] VITALS: BP 130/76
[2018-09-20 12:52] VITALS: BP 144/78
[2018-09-20 12:53] VITALS: BP 136/76
[2018-09-22 17:16] VITALS: BP 122/78
[2018-09-22 17:21] VITALS: BP 132/84
[2018-09-24 17:56] VITALS: BP 122/80
[2018-09-24 17:57] VITALS: BP 100/78
[2018-09-26 13:10] VITALS: BP 140/86
[2018-09-26 13:11] VITALS: BP 132/90
[2018-10-01 12:50] VITALS: BP 144/88
[2018-10-03 18:21] VITALS: BP 162/84
[2018-10-03 18:23] VITALS: BP 152/90
[2018-10-06 15:28] VITALS: BP 146/78
[2018-10-06 15:30] VITALS: BP 117/82
[2018-10-08 13:12] VITALS: BP 150/90
[2018-10-08 13:13] VITALS: BP 144/84
[2018-10-10 12:51] VITALS: BP 142/88
[2018-10-10 12:52] VITALS: BP 124/82
--- NOTE | 2018-10-13 15:01 | CARDIAC REHAB PLAN OF CARE ---
Physician: Jessenia Warner MD Patient is being seen: Dena Karen MS Medical Diagnosis: MVR Date of Onset: 05/23/18 Date of Initial Evaluation: 08/11/18 Date patient was last seen: 10/10/18 Number of treatments: 29 Number of cancellations/No Shows: 1 INTERVENTIONS: Due Date: 11/12/18 Exercise Reassessment (Date: 10/13/18): Patient has maintained her THR zone during exercise and has extended her exercise duration to 45+ per session. She has reported some new levels of fatigue and breathlessness that worried her a bit. Our interns discussed with and determined that it was exercise induced SOB due to her exertion and they talked with her about how to tell the difference between abnormal SOB and SOB that is expected with exercise. Following this conversation she felt much more comfortable and continued to exercise. She has been able to maintain her target intensity zone and reports enjoying the overall exercise she has been achieving. Next months goal will be to establish the patients exercise plan for when she leaves the Phase II program as well as start to incorporate leisure time activity on off days (). Nutrition Reassessment (Date: 10/13/18): Our main goal for this next month is to do a final evaluation of the patients current nutritional intake and establish goals and a nutrition plan for when she leaves the Phase II program. Psychosocial Reassessment (Date: 10/13/18): Patient maintains a positive attitude and has become comfortable with the CR staff. She is comfortable asking questions and for assistance when needed. She has taken more interest in physical fitness and understands the benefits of regular physical activity. We hope to help her motivate herself and find her niche towards physical activity so she can continue this progress when she leaves Phase II. Physician Signature: Date: MTDD
[2018-10-15 12:28] VITALS: BP 160/102
[2018-10-15 12:29] VITALS: BP 126/82
[2018-10-20 18:09] VITALS: BP 136/88
[2018-10-20 18:10] VITALS: BP 108/70
[2018-10-22 17:43] VITALS: BP 124/80
[2018-10-22 17:44] VITALS: BP 124/84
[2018-10-24 12:49] VITALS: BP 144/78
[2018-10-24 12:50] VITALS: BP 124/82
[2018-10-27 12:48] VITALS: BP_SYST 130; BP_SYST 132; BP_DIAS 82; BP_DIAS 88
[2018-10-29 12:46] VITALS: BP 134/90
[2018-10-29 12:47] VITALS: BP 132/86
[2018-10-31 17:11] VITALS: BP 122/74
[2018-10-31 17:13] VITALS: BP 108/78
[2018-11-03 15:30] VITALS: BP 108/80
[2018-11-03 15:33] VITALS: BP 108/78
[2018-11-05 16:31] VITALS: BP_SYST 124; BP_SYST 142; BP_DIAS 78; BP_DIAS 92
[2018-11-07 12:40] VITALS: BP 130/84
[2018-11-07 12:41] VITALS: BP 124/78
[2018-11-11] MEDS ORDERED: MONT10TA PO (08:33)
== END 2018-11-09 ==
LOC: CARD 11:00
PROVIDERS: ATTEND Family Medicine
DX: Z95.2 Presence of prosthetic heart valve (principal); I10 Essential (primary) hypertension; G47.30 Sleep apnea, unspecified; J45.909 Unspecified asthma, uncomplicated; Z87.891 Personal history of nicotine dependence; Z86.73 Personal history of transient ischemic attack (TIA), and cerebral infarction without residual deficits
CPT/HCPCS: 93798

== ENCOUNTER 2018-11-12 10:00 | Outpatient (RCR) | payer MEDICARE, BC ==
[2018-11-12 12:52] VITALS: BP 114/82
[2018-11-12 12:54] VITALS: BP 100/68
--- NOTE | 2018-11-12 14:51 | CARDIAC REHAB PLAN OF CARE ---
Physician: Jessenia Warner MD Patient is being seen: Karen Fernandes MS Medical Diagnosis: MVR Date of Onset: 05/23/19 Date of Initial Evaluation: 08/11/18 INTERVENTIONS: Due Date: 11/12/18 Exercise Discharge/Follow-Up (Date: 11/12/18): The patient has improved both in her physical/cardiorespiratory fitness as well as her understanding of the importance of physical activity. By the end of the program, the patient was exercise on average for 40 minutes/session. She was able to start exceeding her initial THR safely, increasing her HR during exercise to 115bpm. This increase in exercise HR is also accompanied by an increase in overall intensity, as shown by her 6-minute walk test results. She improved by 12% from her initial eval to her graduation day. She has also learned what normal SOB is and what is expected DODD, which initially caused her some worry at the beginning of her program. Now she takes fewer breaks and is able to handle her DODD better. Her time in [facility] has helped her reinstall her love for walking and is looking forward to getting outside during the summer to walk in the nice weather. Once the weather turns for the worse (fall/winter) she plans to attend Phase III rehab. Nutrition Discharge/Follow-Up (Date: 11/12/18): Patient continues to follow a well-balanced and heart healthy diet. During her [facility] program, she received several heart healthy educational guides, along with recipes to try at home. She did not have any questions upon her discharge from the program, but understands that if she were to have questions or concerns we are available. Psychosocial Discharge/Follow-Up (Date: 11/12/18): Patient was hesitant and relatively reserved upon her initial eval and has since opened up to both [facility] staff and class members. She reports enjoying her time at [facility] and has benefitted from the social interaction. Her HADS assessment improved, dropping her from the moderate classification of depression to the normal classification. The exercise has overall benefitted her mood and she says that she plans to continue walking daily in order to keep on the upward progression. JUAQUIN
== END 2018-11-12 18:00 | disposition home or self-care (01) ==
LOC: CARD 10:00
PROVIDERS: ATTEND Family Medicine
DX: Z95.2 Presence of prosthetic heart valve (principal); I10 Essential (primary) hypertension
CPT/HCPCS: 93798

== ENCOUNTER 2019-01-02 08:17 | Emergency (ER) | payer MEDICARE, BC ==
[~2019-01-02 08:17] MED LIST changes: +MELA5TAB3 PO; -MELA5TAB6 PO; -OMEP-125 PO; +OMEP-126 PO
--- NOTE | 2019-01-02 08:19 | ER Report ---
History and Physical Time Seen By MD: 08:16 HPI/ROS CHIEF COMPLAINT: Dizziness and vertigo HISTORY OF PRESENT ILLNESS: Patient is a 78-year-old female here with complaints of dizziness acute onset wall walking outside shortly prior to arrival. Patient does have a history of significant cardiac surgeries including valve repair, aortic repair, ablation. Patient does report brief episodes of similar symptoms however denies prior history of continued dizziness. Patient does have a horizontal fatigable nystagmus at time of evaluation. Patient is afebrile, hemodynamically stable at time of evaluation. Denies chest pain or shortness of breath. REVIEW OF SYSTEMS: Constitutional: No fever, no chills. Eyes: No discharge. ENT: No sore throat. Cardiovascular: No chest pain, no palpitations. Respiratory: No cough, no shortness of breath. Gastrointestinal: No abdominal pain, no vomiting. Genitourinary: No hematuria. Musculoskeletal: No back pain. Skin: No rashes. Neurological: Dizziness, lightheadedness Allergies: Coded Allergies: lisinopril (Verified Allergy, Severe, LIPS SWELL, 06/23/18) nitrofurantoin (Verified Allergy, Severe, Shortness of Breath, 06/23/18) ROE Inhibitors (Verified Allergy, Intermediate, SWELLING, 06/23/18) Pt does not think she is allergic to these medications pentazocine (Verified Allergy, Intermediate, N/V, 06/23/18) oxycodone (Verified Adverse Reaction, Severe, NAUSEA AND VOMITING, 06/23/18) Home Meds Active Scripts Omeprazole (OMEPRAZOLE) 20 Mg Capsule.dr, 1 CAP PO QDAY for 90 Days, #90 CAP 4 Refills Prov:DENISA SU MD 12/10/18 Montelukast Sodium (SINGULAIR) 10 Mg Tablet, 1 TAB PO QDAY for 90 Days, #90 TAB 1 Refill Prov:DENISA SU MD 11/11/18 Losartan Potassium (LOSARTAN POTASSIUM) 50 Mg Tablet, 1 TAB PO QDAY for 90 Days, #90 TAB 4 Refills Prov:DENISA SU MD 10/28/18 Metoprolol Succinate (METOPROLOL SUCCINATE) 25 Mg Tab.er.24h, 1 TAB PO QDAY for 90 Days, #90 TAB 4 Refills Prov:DENISA SU MD 09/29/18 Tramadol Hcl (TRAMADOL HCL) 50 Mg Tablet, 1-2 TAB PO QDAY for 30 Days, #60 TAB Prov:DENISA SU MD 07/07/18 Levothyroxine Sodium (LEVOTHYROXINE SODIUM) 50 Mcg Tablet, 1 TAB PO QDAY for 90 Days, #90 TAB 4 Refills Prov:DENISA SU MD 05/14/18 Diclofenac Sodium 1% Gel (VOLTAREN 1% GEL) 100 Gm Gel..gram., 2 GM TOP TID for 30 Days, #1 TUBE Prov:DENISA SU MD 03/31/18 Fluticasone Prop 50 Mcg Ns (FLONASE 50 MCG NS) 16 Gm [place].susp, 1 SPRAY NS DAILY PRN for PRN for 90 Days, #3 BOT 4 Refills Prov:DENISA SU MD 11/04/17 Reported Medications Melatonin (MELATONIN) 5 Mg Tablet, 1-2 TAB PO HS 07/08/18 Warfarin Sodium (WARFARIN SODIUM) 3 Mg Tablet, 1-2 TAB PO DIRECTED, TAB 07/08/18 Psyllium Husk (METAMUCIL) 0.52 Gm Capsule, 1 CAP PO DAILY, CAPSULE 06/16/18 Bioflav,Lemon/Vit Bcomp&C (LIPO-FLAVONOID PLUS CAPLET) 1 Each Tablet, 1 EACH PO BID 06/16/18 Ascorbic Acid (VITAMIN C) 500 Mg Tablet, 1 TAB PO DAILY, TAB 06/16/18 Cyanocobalamin (Vitamin B-12) (VITAMIN B-12) 1,000 Mcg Tablet.er, 1 TAB PO DAILY 12/09/17 Vit C/E/Zn/Coppr/Lutein/Zeaxan (Preservision Areds 2 Softgel) 1 Each Capsule, 1 CAP PO BID 12/09/17 Calcium Carbonate (TUMS ULTRA) 400 Mg Tab.chew, 2-3 TAB.CHEW PO DAILY, TAB.CHEW 06/28/17 Mercer-3 Fatty Acids/Fish Oil (OMEGA 3 1,000 MG SOFTGEL) 1 Each Capsule, 1 EACH PO DAILY 08/07/15 Cholecalciferol (Vitamin D3) (VITAMIN D-3) 2,000 Unit Capsule, 1 CAP PO DAILY, CAPSULE 08/07/15 Acetaminophen (TYLENOL EXTRA STRENGTH) 500 Mg Tablet, 2 TAB PO TID PRN for PAIN 08/07/15 Latanoprost (LATANOPROST) 2.5 Ml Drops, 1 DROP OU QHS 03/25/14 Discontinued Scripts Codeine Phosphate/Guaifenesin (Virtussin AC Liquid) 10 Mg-100 Mg/5 Ml Liquid, 5- 10 ML PO Q6-8H PRN for cough, #240 ML 0 Refills Prov:DENISA SU MD 07/29/18 Hx Smoking: No Smoking Status: Never Smoker Exposure to Second Hand Smoke?: No Hx Substance Use Disorder: No Hx Alcohol Use: Yes (OCC) Constitutional Vital Sign - Last 24 Hours 01/02/19 01/02/19 01/02/19 01/02/19 08:17 08:23 08:27 08:30 Temp 97.8 Pulse 75 86 Resp 16 B/P (MAP) 162/108 (126) 162/108 159/101 (120) Pulse Ox 91 O2 Delivery Room Air 01/02/19 01/02/19 01/02/19 01/02/19 08:32 08:47 09:00 09:02 Pulse 81 75 74 Resp 16 10 9 B/P (MAP) 152/92 (112) Pulse Ox 95 89 87 01/02/19 01/02/19 01/02/19 09:15 09:17 09:32 Pulse 79 72 B/P (MAP) 156/109 (125) Pulse Ox 89 Physical Exam General Appearance: The patient is alert, has no immediate need for airway protection and no signs of toxicity. Uncomfortable appearing Eyes: Fatigable horizontal nystagmus, pupils equal and reactive ENT, Mouth: Mucous membranes are moist. Respiratory: There are no retractions, lungs are clear to auscultation. Cardiovascular: Regular rate and rhythm. Gastrointestinal: Abdomen is soft and non tender, no masses, bowel sounds normal. Neurological: No focal neurological deficits, cranial nerves intact Skin: Warm and dry, no rashes. Musculoskeletal: Neck is supple non tender. Extremities are nontender, nonswollen and have full range of motion. DIFFERENTIAL DIAGNOSIS: After history and physical exam differential diagnosis was considered for dizziness including but not limited to peripheral and central causes of vertigo, orthostatic causes including dehydration, and blood loss, arrhythmia, cardiac etiology Medical Decision Making Data Points Result Diagram: 01/02/19 0840 01/02/19 0840 Laboratory Hematology Test 01/02/19 08:40 White Blood Count 3.3 k/uL (4.5-11.0) L Red Blood Count 4.78 M/uL (4.17-5.56) Hemoglobin 13.9 g/dL (12.0-16.0) Hematocrit 41.5 % (34.0-47.0) Mean Corpuscular Volume 87.0 fL (80.0-96.0) Mean Corpuscular Hemoglobin 29.1 pg (26.0-33.0) Mean Corpuscular Hemoglobin Concent 33.4 g/dL (32.0-36.0) Red Cell Distribution Width 15.9 % (11.5-14.5) H Platelet Count 152 K/uL (150-450) Mean Platelet Volume 7.3 fL (7.2-11.1) Neutrophils (%) (Auto) 55.9 % (39.4-72.5) Lymphocytes (%) (Auto) 31.8 % (17.6-49.6) Monocytes (%) (Auto) 10.7 % (4.1-12.4) Eosinophils (%) (Auto) 0.7 % (0.4-6.7) Basophils (%) (Auto) 0.9 % (0.3-1.4) Nucleated RBC Relative Count (auto) 0.2 /100WBC Neutrophils # (Auto) 1.8 K/uL (2.0-7.4) L Lymphocytes # (Auto) 1.0 K/uL (1.3-3.6) L Monocytes # (Auto) 0.4 K/uL (0.3-1.0) Eosinophils # (Auto) 0.0 K/uL (0.0-0.5) Basophils # (Auto) 0.0 K/uL (0.0-0.1) Nucleated RBC Absolute Count (auto) 0.01 K/uL Chemistry Test 01/02/19 08:40 Sodium Level 137 mmol/L (137-145) Potassium Level 3.9 mmol/L (3.5-5.0) Chloride Level 103 mmol/L (98-107) Carbon Dioxide Level 26 mmol/L (22-31) Blood Urea Nitrogen 21 mg/dl (7-18) Creatinine 0.90 mg/dl (0.52-1.04) Glomerular Filtration Rate Calc > 60.0 Random Glucose 90 mg/dl (75-110) Calcium Level 9.4 mg/dl (8.4-10.2) Total Bilirubin 0.5 mg/dl (0.2-1.3) Aspartate Amino Transf (AST/SGOT) 30 U/L (0-35) Alanine Aminotransferase (ALT/SGPT) 34 U/L (0-56) Alkaline Phosphatase 70 U/L (0-126) Troponin I < 0.012 ng/ml Total Protein 6.8 g/dl (6.3-8.2) Albumin 4.1 g/dl (3.5-5.0) Urinalysis Test 01/02/19 10:00 Urine Color Straw Urine Clarity Clear Urine pH 7.0 pH (4.8-9.5) Urine Specific [place] 1.009 Urine Protein Negative mg/dL (NEGATIVE) Urine Glucose (UA) Negative mg/dL (NEGATIVE) Urine Ketones Negative mg/dL (NEGATIVE) Urine Blood Negative (NEGATIVE) Urine Nitrite Negative (NEGATIVE) Urine Bilirubin Negative (NEGATIVE) Urine Urobilinogen Negative mg/dL (0.2-1.9) Urine Leukocyte Esterase Negative (NEGATIVE) Urine RBC <1 /HPF (0-2/HPF) Urine WBC 1 /HPF (0-5/HPF) Urine Squamous Epithelial Cells Few /LPF (</=FEW) Urine Transitional Epithelial Cells Few /LPF (NONE-FEW) Urine Bacteria Few /HPF (NONE-FEW) Urine Mucus None /HPF (NONE-FEW) EKG/Imaging EKG Interpretation PATIENT NAME: LETICIA MCLAUGHLIN : [id number] MR: [id number] V: [id number] EXAM DATE: ORDERING PHYSICIAN: FATIMAH MATUTE TECHNOLOGIST: LEXY Mckeon Reason : DIZZY Blood Pressure : / mmHG Vent. Rate : 078 BPM Atrial Rate : 078 BPM P-R Int : 154 ms QRS Dur : 088 ms QT Int : 422 ms P-R-T Axes : 022 063 080 degrees QTc Int : 481 ms Normal sinus rhythm Left ventricular hypertrophy with repolarization abnormality Prolonged QT Abnormal ECG Referred By: GIOVANI Confirmed By: Imaging PATIENT NAME: Leticia Mclaughlin : 1940 MR: [id number] V: [id number] EXAM DATE: ORDERING PHYSICIAN: FATIMAH MATUTE TECHNOLOGIST: Location: [facility] [place] Patient: Leticia Mclaughlin : 1940 Visit/Account:[id number] Date of Sevice: 01/02/2019 CHEST SINGLE AP Indication: Dizziness. Nausea. Comparison: 03/19/2018 Findings: There has been prior median sternotomy, valve replacement surgery and clip placement along the left atrium since the prior study. Linear atelectasis and/or scarring is present within both lung bases. The lungs are otherwise clear. No focal confluent infiltrate. No pneumothorax or pleural effusion. Heart size is normal. There has been prior cervical and lumbar fusion procedures which are incompletely evaluated. IMPRESSION: 1. Linear atelectasis and/or scarring in the lung bases. Lungs are otherwise clear without infiltrate. 2. Postoperative changes as detailed above. FACILITY: [facility] [place] PATIENT NAME: Leticia Mclaughlin : 1940 MR: [id number] V: [id number] EXAM DATE: [id number] ORDERING PHYSICIAN: FATIMAH MATUTE TECHNOLOGIST: Location: [facility] [place] Patient: Leticia Mclaughlin : 1940 Visit/Account:[id number] Date of Sevice: 01/02/2019 CT BRAIN NO CONTRAST History: dizziness TECHNIQUE: Contiguous angled axial images were obtained from the vertex through the base of the skull without intravenous contrast. One of the following dose optimization techniques was utilized in the performance of this exam: Automated exposure control; adjustment of the mA and/or kV according to the patient's size; or use of an iterative reconstruction technique. Specific details can be referenced in the facility's radiology CT exam operational po licy. COMPARISON STUDIES: Head CT report September 2010 FINDINGS: Ventricles / sulci / fissures: Negative. Masses / hemorrhage / midline shift: Negative. Intra-axial findings: Normal. Extra-axial fluid collections: Negative. Intracranial vasculature and dural sinuses: Negative. Skull base / calvarium: Negative. Scalp: negative Visualized mastoid air cells / paranasal sinuses: Well aerated. Orbits: Negative IMPRESSION: Normal exam Report Dictated By: Iam Gordillo MD at 01/02/2019 9:48 AM Report E-Signed By: Iam Gordillo MD at 01/02/2019 9:51 AM WSN:[id number] ED Course/Re-evaluation ED Course Patient is a 78-year-old female here with complaints of dizziness, lightheadedness acute onset while walking. Patient does have a fatigable horizontal nystagmus on examination. Patient does have a history significant for coronary artery disease, valvular disease, status post ablation. EKG showed no ischemic findings or arrhythmias. CT imaging of the head showed no intracranial findings, chest x-ray showed no signs of pneumonia. Electrolytes, blood counts were found to be unremarkable. Patient was given IV fluids, antiemetics with significant improvement in symptoms. Patient was ambulated and did well prior to discharge. Prescription for meclizine given. Close PCP follow-up and cardiology follow-up recommended. 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 Patient was stable at time of discharge. Return precautions provided. Decision to Disposition Date: Jan 02, 2019 Decision to Disposition Time: 10:42 Depart Departure Latest Vital Signs Vital Signs Date Time Temp Pulse Resp B/P (MAP) Pulse Ox O2 Delivery O2 Flow Rate FiO2 01/02/19 09:32 72 01/02/19 09:17 89 01/02/19 09:15 156/109 (125) 01/02/19 09:02 9 01/02/19 08:27 97.8 Room Air Impression: Primary Impression: Vertigo Condition: Improved Disposition: HOME OR SELF-CARE Referrals: DENISA SU MD (PCP) New Scripts Meclizine Hcl (MECLIZINE HCL) 12.5 Mg Tablet 12.5 MG PO BID PRN for DIZZINESS, #10 TAB Prov: FATIMAH MATUTE DO 01/02/19 Patient Instructions: Vertigo (DC) Additional Instructions: Please drink plenty of water. Please follow-up with your primary care provider and cardiology in the next 3-5 days. Please return immediately if you develop fevers, headaches, recurrent episodes of vertigo, inability keep down food or fluids. You may take 1 tablet of meclizine every 12 hours as needed for dizziness. FATIMAH MATUTE DO Jan 02, 2019 08:19
[2019-01-02] MEDS ORDERED: NS(*) 0.9% 1000 ML BAG 1,000 ML IV ONE (08:34)
[2019-01-02] MEDS ORDERED: METOCLOPRAMIDE 10 MG/2 ML SDV IVP ONE (08:35)
--- NOTE | 2019-01-02 08:50 | EKG ---
FACILITY: [facility] PATIENT NAME: LETICIA MCLAUGHLIN : [id number] MR: [id number] V: [id number] EXAM DATE: ORDERING PHYSICIAN: FATIMAH MATUTE TECHNOLOGIST: LEXY Mckeon Reason : DIZZY Blood Pressure : / mmHG Vent. Rate : 078 BPM Atrial Rate : 078 BPM P-R Int : 154 ms QRS Dur : 088 ms QT Int : 422 ms P-R-T Axes : 022 063 080 degrees QTc Int : 481 ms Normal sinus rhythm Left ventricular hypertrophy with repolarization abnormality Prolonged QT Compared to previous, now with LVH findings Confirmed by ELIZABETH PAEZ ([id number]) on 01/02/2019 10:22:24 PM Referred By: GIOVANI Confirmed By:ELIZABETH PAEZ
[2019-01-02 08:53] LABS: PLATELET COUNT, AUTOMATED 152 K/uL (150-450)
--- NOTE | 2019-01-02 09:28 | RADIOLOGY IMAGING REPORT ---
FACILITY: [facility] PATIENT NAME: Telma Joseph : 1940 MR: [id number] V: [id number] EXAM DATE: ORDERING PHYSICIAN: FATIMAH MATUTE TECHNOLOGIST: Location: [facility] Patient: Telma Joseph : 1940 Visit/Account:[id number] Date of Sevice: 01/02/2019 CHEST SINGLE AP Indication: Dizziness. Nausea. Comparison: 03/19/2018 Findings: There has been prior median sternotomy, valve replacement surgery and clip placement along the left a trium since the prior study. Linear atelectasis and/or scarring is present within both lung bases. The lungs are otherwise clear. No focal confluent infiltrate. No pneumothorax or pleural effusion. Heart size is normal. There has been prior cervical and lumbar fusion procedures which are incompletely evaluated. IMPRESSION: 1. Linear atelectasis and/or scarring in the lung bases. Lungs are otherwise clear without infiltra te. 2. Postoperative changes as detailed above. Report Dictated By: Mark Calles at 01/02/2019 9:18 AM Report E-Signed By: Mark Calles at 01/02/2019 9:19 AM WSN:[email or web address]
--- NOTE | 2019-01-02 09:59 | RADIOLOGY IMAGING REPORT ---
FACILITY: [facility] PATIENT NAME: Telma Joseph : 1940 MR: [id number] V: [id number] EXAM DATE: ORDERING PHYSICIAN: FATIMAH MATUTE TECHNOLOGIST: Location: [facility] Patient: Telma Joseph : 1940 Visit/Account:[id number] Date of Sevice: 01/02/2019 CT BRAIN NO CONTRAST History: dizziness TECHNIQUE: Contiguous angled axial images were obtained from the vertex through the base of the sku ll without intravenous contrast. One of the following dose optimization techniques was utilized in th e performance of this exam: Automated exposure control; adjustment of the mA and/or kV according to t he patient's size; or use of an iterative reconstruction technique. Specific details can be referen yaneth in the facility's radiology CT exam operational policy. COMPARISON STUDIES: Head CT report September 2010 FINDINGS: Ventricles / sulci / fissures: Negative. Masses / hemorrhage / midline shift: Negative. Intra-axial findings: Normal. Extra-axial fluid collections: Negative. Intracranial vasculature and dural sinuses: Negative. Skull base / calvarium: Negative. Scalp: negative Visualized mastoid air cells / paranasal sinuses: Well aerated. Orbits: Negative IMPRESSION: Normal exam Report Dictated By: Iam Gordillo MD at 01/02/2019 9:48 AM Report E-Signed By: Iam Gordillo MD at 01/02/2019 9:51 AM WSN:[id number]
[2019-01-02 10:30] VITALS: BP 172/111
[2019-01-02] MEDS ORDERED: MECL12.5 PO (10:46)
[2019-01-08] MEDS ORDERED: MECL12.5 PO (08:47)
== END 2019-01-02 11:01 | disposition home or self-care (01) ==
LOC: ER 08:30
DX: R42 Dizziness and giddiness (principal)
CPT/HCPCS: 70450; 71045; 81001; 84484; 85025; 93005; 96361; 96374; 99284; J2765; J7030; 82040; 82247; 82310; 82374; 82435; 82565; 82947; 84075; 84132; 84155; 84295; 84450; 84460; 84520

== ENCOUNTER 2019-02-03 11:00 | Outpatient (RCR) | payer MEDICARE, BC ==
--- NOTE | 2019-01-14 17:44 | PT INITIAL EVALUATION ---
MEDICAL DIAGNOSIS: R42 Vertigo, H8.10 BPPV, Z86.69 Hx Migraine, M53.9 Cervical dysfunction TREATMENT DIAGNOSIS: Same DATE OF ONSET: 12/31/18 SUBJECTIVE: Telma Joseph presents to PT for vertigo, insidious onset while walking two weeks ago. She has been taking Meclizine which reduces symptoms, and took a dose this morning. She states she's not walking outside due to fear of vertigo and falling, even with using a walking stick. Pain location is cervical lateral and posterior and described as tingling, ache. Pain scale is 3 on a ten point pain scale. Pain is worse with movement and better with rest. 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 OBJECTIVE: Posture: Straightened cervical lordosis, forward head posture from ~T3/4. ROM: Cerv. AROM rotation 20%, flexion 20%, minimal extension. Palpation: Tight cervical/scapular muscles. Special Tests: Negative nystagmus with Hallpike L and R (Meclizine). Increased R postural sway with static stand eyes shut. Mobility: Independent, slow and careful sit/supine. Gait: Weaves R in gait. Balance: Double limb support. ASSESSMENT: Telma Joseph presents to PT for probable R posterior canal BPPV (R postural sway, weaves R in gait, no nystagmus due to taking Meclizine this morning). She reported she felt more steady after Nithin's maneuver to the R posterior canal and had less cervical pain after manual therapy. Short Term Goals/Patient's Goals: 3 weeks: Telma denies out-of-sync feeling, nausea with gait, ambulates steady gait independently outdoors. PLAN: Patient to be seen for Manual Therapy, Ice/Heat, Range of Motion, Stretching, Neuromuscular Re-ed, Gait Trg/Balance Trg, Home Exercise Program 2x/Week for 3 weeks Thank you for this referral. If you have any questions, comments, or concerns about this report or plan, please contact me at . MTDD
[~2019-02-03 11:00] MED LIST changes: +MECL12.5 PO
--- NOTE | 2019-02-03 12:03 | PT PLAN OF CARE ---
Physician: Dr. Jessenia Warner Patient is being seen: 2x/week Therapist: Ying Sharp, PT Medical Diagnosis: R42 Vertigo, H8.10 BPPV, Z86.69 Hx migraine, M53.9 Cerv. dysfunction Treatment Diagnosis: Same Date of Onset: 12/31/18 Date of Initial Evaluation: 01/14/19 Date patient was last seen: 02/03/19 Number of treatments: 6 Number of cancellations/No shows: 0 INTERVENTIONS: Manual Therapy, Neuromuscular Re-ed, Gait Trg/Balance Trg, Home Exercise Program GOALS/PATIENT'S GOAL: 3 weeks: Telma denies out-of-sync feeling, nausea with gait, ambulates steady gait independently outdoors. all met Patient Compliance: Excellent Prognosis: Excellent Reasons for discontinuing therapy: S: Telma relates her vertigo and symptoms have resolved, she's carrying boxes safely on stairs, walking in her yard with a ski pole well. Her cervical pain has returned to normal. Posture: Head midline. ROM: Cerv. AROM remains rotation 20%, flexion 20%, minimal extension. Gait/Balance: Functional Gait Assessment 27/30, a 10% impairment. Telma turns with control, has mild change of cadance with tandem gait, gait with head motion. Independent stair use without handrail use. Special Tests: Negative head thrust, eye tracking and gaze stabilization WNL. Mobility: Independent, normal speed. A/P: Telma Eyestone has resolved her vertigo, habituated her vestibular system. We discussed continuing her massage for her cervical region. I'll DC PT to brief HEP. Thank you. JUAQUIN
[2019-02-03] MEDS ORDERED: ALB18R INH (14:12)
[2019-02-03] MEDS ORDERED: TRAM-420 PO (14:12)
[2019-02-03] MEDS ORDERED: Cpap (14:43)
== END 2019-02-03 15:44 | disposition home or self-care (01) ==
LOC: PT 11:00
PROVIDERS: ATTEND Family Medicine
DX: H81.10 Benign paroxysmal vertigo, unspecified ear (principal); M53.9 Dorsopathy, unspecified; Z86.69 Personal history of other diseases of the nervous system and sense organs
CPT/HCPCS: 97162